=== PATIENT | female | born 1945 | race Caucasian/White ===

== ENCOUNTER → 2023-09-19 16:13 | Outpatient (REF) | payer OTHER, SELFPAY | LOC: RAD 16:13 | PROVIDERS: ATTENDING PHYSICIAN Family Medicine | DX: J44.9 Chronic obstructive pulmonary disease, unspecified (principal) | CPT/HCPCS: 71046 ==

== ENCOUNTER 2023-09-21 08:46 | Inpatient (IN) | payer OTHER, SELFPAY ==
[2023-09-19 17:02] VITALS: BP 169/100
[2023-09-19 17:25] LABS: % Basophils 0.5 % (0-2); % Eosinophils 1.2 % (0-6); % Immature Granulocytes 0.5 % (0-0.5); % Lymphocytes 15.9 % (20.5-51.1); % Monocytes 6.7 % (1.7-9.3); % Neutrophils 75.2 % (42.2-75.2); Absolute Basophils 0.1 10^3/uL (0-0.2); Absolute Eosinophils 0.1 10^3/uL (0-0.7); Absolute Immature Granulocytes 0.1 10^3/uL (0-0.05); Absolute Lymphocytes 1.7 10^3/uL (1.2-3.4); Absolute Monocytes 0.7 10^3/uL (0.1-0.6); Absolute Neutrophils 7.9 10^3/uL (1.4-6.5); Hematocrit 43.6 % (37.0-47.0); Hemoglobin 15.1 g/dL (12.0-16.0); Mean Corp Hgb Conc. 34.6 g/dL (33.0-37.0); Mean Corpuscular Hgb 29.8 pg (27.0-31.0); Mean Corpuscular Volume 86.2 fL (81.0-99.0); Mean Platelet Volume 11.7 fL (7.4-10.4); Nucleated Red Blood Cells % 0 %; Platelet Count 192 10^3/uL (130-400); Red Blood Cell Count 5.06 10^6/uL (4.20-5.40); White Blood Cell Count 10.5 10^3/uL (4.8-10.8)
[2023-09-19 17:38] LABS: ALT (SGPT) 24 U/L (0-35); AST (SGOT) 27 U/L (14-36); Albumin 4.4 g/dl (3.5-5.0); Alkaline Phosphatase 82 U/L (38-126); Blood Urea Nitrogen 13 mg/dl (7-17); Calcium 9.4 mg/dl (8.4-10.2); Carbon Dioxide 30 mmol/L (22-30); Chloride 105 mmol/L (98-107); Glucose 122 mg/dl (70-99); Potassium 4.1 mmol/L (3.5-5.1); Sodium 139 mmol/L (135-145); Total Bilirubin 1.9 mg/dl (0.2-1.3); eGFR > 60.00
[2023-09-19 18:03] LABS: Troponin I 0.035 ng/ml
[2023-09-19 18:13] LABS: NT-proBNP 3050 pg/ml
[2023-09-19 19:30] VITALS: BP 111/70
--- NOTE | 2023-09-19 19:45 | ED.GENMED ---
History of Present Illness
General
Chief Complaint: Breathing Problem
Time Seen by Provider: 09/19/23 19:34
Travel History
Have you had any contact with someone who has COVID-19?: No
Do you have any symptoms of coronavirus? Fever > 100 degrees, chills, cough, shortness of breath, sore throat, loss of taste or smell, muscle aches, or headache?: No
History of Present Illness
History of Present Illness:
78-year-old female with history of COPD, hypertension and hyperlipidemia presents to the emergency department for evaluation of shortness of breath that is worsened throughout the day. Patient noted that she has been 'wheezing' for the past several
weeks, today her shortness of breath appear to be worse. She denies any dyspnea on exertion or orthopnea. Denies any leg swelling or weight gain. Had an outpatient chest x-ray showing cardiomegaly and vascular congestion and thus was sent to the
emergency department for further workup. No history of heart failure, last echocardiogram was in 2019 showing a preserved ejection fraction
Past History
Past History
ED Past Medical History: Cancer (Breast cancer), GERD, HTN, Hypercholesterolemia, Psychiatric (Depression), Other (Diverticulitis, status post colon resection) and Other (Hepatic hemangioma, adrenal adenoma/stable)
ED Past Surgical History: Appendectomy, Bowel resection (Sigmoid colon resection secondary to diverticulitis) and Gynecological (Breast lumpectomy with subsequent XRT, ovarian cyst removal)
Social History
Tobacco: Former smoker
Alcohol: Occasional
Personal: Single
Living: alone
Employment: Retired
Family History
Family History: CAD
Review of Systems
Review of Systems
Allergies reviewed?: Yes
All Other Systems: ROS reviewed and negative except as documented in HPI and ROS
Phy Exam
Physical Exam
Physical Exam:
GEN: Well appearing, NAD, WDWN
Eyes: PERRLA, EOMs intact, no scleral icterus
HENT: NCAT, oral mucosa moist
Lungs: Grossly diminished breath sounds, no wheezes or rales
Cardiac: RRR, no M/R/G, no peripheral edema. Radial pulses 2+ bilat
Abdomen: S, NT, ND, NABS, no masses or hepatosplenomegaly
Neuro: AO x 3
MSK: No gross deformity or ecchymosis. No edema. No digital clubbing
Skin: No rashes, petechiae. Normal color, no pallor or jaundice.
Psych: Calm, cooperative, proper hygiene
Scores
Heart Failure Risk
Heart Failure Risk Score: Not Applicable
Course
Orders/Labs/Results
Orders:
Orders
09/19/23 17:05
Electrocardiogram (*1) Urgent
Reason for Study: Shortness of Breath
EKG- Treatment ONCE
09/19/23 17:16
Complete Blood Count/With Diff Urgent
Comprehensive Metabolic Panel Urgent
NT-proBNP Urgent
Troponin I Urgent
09/19/23 19:47
Furosemide [Lasix] 20 mg IV NOW STA
09/19/23 20:12
Admit/Transfer Patient As Directed
Co-Sign Provider:
Level of Care: Observation services
Assign to:: Telemetry
Physician / Group: lindsey
Diagnosis: chf exacerbation
Reason for Telemetry: Pulmonary Edema
Date to Stop Telemetry: 09/22/23
Time to Stop Telemetry: 11:00
Code Status As Directed
Resuscitation Status: Do not resuscitate
Reached after discussion with pt or family/Healthcare POA: Yes
DNR Bracelet Application ONCE
09/19/23 20:13
Furosemide [Lasix] 20 mg IV NOW STA
09/22/23 11:00
DC Protocol for Telemetry ONCE
Abnormal Lab Results
09/19/23
17:16
MPV 11.7 H fL
(7.4-10.4)
Abs Immat Gran (auto) 0.1 H 10^3/uL
(0-0.05)
Absolute Neuts (auto) 7.9 H 10^3/uL
(1.4-6.5)
Absolute Monos (auto) 0.7 H 10^3/uL
(0.1-0.6)
Lymphocytes % 15.9 L %
(20.5-51.1)
Creatinine 0.5 L mg/dL
(0.6-1.0)
Glucose 122 H mg/dl
(70-99)
Total Bilirubin 1.9 H mg/dl
(0.2-1.3)
Troponin I 0.035 H* ng/ml
09/19/23 17:16
09/19/23 17:16
Vital Signs
Initial and Last Documented VS:
Initial Vital Signs
Temp Resp BP Pulse Ox
98.8 F 20 169/100 93
09/19/23 17:02 09/19/23 17:02 09/19/23 17:02 09/19/23 17:02
Last Documented Vital Signs
Temp Pulse Resp BP Pulse Ox
98.8 F 92 20 154/81 94
09/19/23 17:02 09/19/23 21:35 09/19/23 17:02 09/19/23 21:35 09/19/23 19:22
MDM/Problems Addressed
MDM/Problems Addressed:
78-year-old female presenting with acute shortness of breath. X-ray obtained earlier in the day is suggestive of acute CHF, elevated troponin and BNP further support this diagnosis. She has no wheezing to suggest acute COPD exacerbation. No fever
or leukocytosis concerning for infectious etiology. Given that history of CHF and is na�ve to diuresis we will admit her to the hospitalist service
*Critical Care Note
Total Time (30-74mins, 75-104mins- exclusive of procedures): Not Applicable
ED Attending Note
-
Portions of this chart may have been created with voice recognition software.� Occasional wrong word or��sound alike� substitutions may have occurred due to the inherent limitations of voice recognition software.
Discharge Plan
Departure
Patient Disposition: Admit
Date of Disposition: 09/19/23
Time of Disposition: 19:55
Presentation/result/management discussed w/ accepting MD/DO: Hospitalist
Discharge Problem:
Congestive heart failure
Interventions
Interventions:
*Risk Screen - Suicide Last Done: 09/19/23 19:22
*General Assessment Last Done: 09/19/23 19:22
*Neglect/Abuse Screening Last Done: 09/19/23 19:22
ED- Fall Risk Assessment Last Done: 09/19/23 19:22
*ED COVID-19 Vaccine History Last Done: 09/19/23 17:02
ED- Cardiac Assessment Last Done: 09/19/23 19:22
ED- Pulmonary Assessment Last Done: 09/19/23 19:22
[2023-09-19 20:01] VITALS: BP 154/81
[2023-09-19] MEDS: LASIX 20 MG IV ×2 (20:01→21:35)
--- NOTE | 2023-09-19 20:15 | HPS.HSE ---
Family Physician
-
Family Physician: Paula Currie
Chief Complaint
-
shortness of breath
History of Present Illness
78-year-old female with past medical history of possible COPD, hypertension, osteoarthritis, hypercholesterolemia, anxiety, breast cancer, diverticulosis, presenting with shortness of breath for the past few days associated with wheezing and some
cough in the morning time which usually resolves by the afternoon. Denies fevers or chills. Denies any chest pain. She has gained 2-3 pounds recently. Denies any lower extremity edema or swelling. She had outpatient chest x-ray showing
cardiomegaly and vascular congestion and was sent to the emergency room.
She is a former heavy smoker. Denies alcohol use.
Medical History
Past Medical History
Past Medical History: Reports Other (possible COPD, hypertension, osteoarthritis, hypercholesterolemia, anxiety, breast cancer, diverticulosis)
Past Surgical History: Reports Other (Appendectomy, ovarian cyst removal, colon resection, breast lumpectomy,)
Social History
Tobacco: Former Smoker
Alcohol: None
Drug: None
Family History
Family History: Not pertinent
Allergies / Home Medications
Allergies reflects when Allergies were last updated in [facility].
Home Medications with original date entered in [facility]
Allergy/Medication List:
Allergies
Allergy/AdvReac Type Severity Reaction Status Date / Time
celecoxib [From Celebrex] Allergy Diarrhea,na Verified 09/19/23 17:04
usea
tramadol Allergy 'doesn't Verified 09/19/23 17:04
work'
Home Medications
atenolol 25 mg tablet 25 mg PO DAILY Blood pressure 08/21/22
rosuvastatin 40 mg tablet 40 mg PO QPM High cholesterol 08/21/22
therapeutic multivitamin 1 tab PO QPM Supplement 08/21/22
losartan 100 mg tablet 100 mg PO DAILY #30 tabs 08/23/22
acetaminophen 650 mg tablet,extended release 650 mg PO HS 09/19/23
amlodipine 5 mg tablet 5 mg PO DAILY 09/19/23
Review of Systems
-
History Source: Patient
A 12 point ROS was completed and negative except as noted: Yes
Constitutional: Reports No Symptoms
EENT: Reports No Symptoms
Respiratory: Reports See HPI
Cardiac: Reports See HPI
Abdomen/GI: Reports No Symptoms
: Reports No Symptoms
Musculoskeletal: Reports No Symptoms
Skin: Reports No Symptoms
Neurological: Reports No Symptoms
Endocrine: Reports No Symptoms
Hematologic/Lymphatic: Reports No Symptoms
Psych: Reports No Symptoms
Physical Exam
Vital Signs
Vital Signs
Temp Pulse Resp BP Pulse Ox
98.8 F 79 20 154/81 94
09/19/23 17:02 09/19/23 20:01 09/19/23 17:02 09/19/23 20:01 09/19/23 19:22
Physical Exam
General: Well Developed, Well Nourished and No Apparent Distress
HEENT: NormoCephalic, Moist mucous membranes and Atraumatic
Respiratory: Clear
Cardiac: S1/S2 and Regular Rhythm; No Murmur or Rub
GI: Soft, Non Tender, Non Distended and Normal Bowel Sounds; No Organomegaly
Rectal: Deferred by Provider
Musculoskeletal: No Clubbing, No Cyanosis and No Edema
Skin: No Rash
Neuro: Nonfocal/grossly intact
Laboratory Results
-
09/19/23 17:16
09/19/23 17:16
Laboratory Results
Total Bilirubin 1.9 mg/dl (0.2-1.3) H 09/19/23 17:16
AST 27 U/L (14-36) 09/19/23 17:16
ALT 24 U/L (0-35) 09/19/23 17:16
Alkaline Phosphatase 82 U/L (38-126) 09/19/23 17:16
Troponin I 0.035 ng/ml H* 09/19/23 17:16
Data Reviewed
-
Lab Data: Labs Reviewed by me
Old Records: Reviewed
Impression/Plan
-
IMPRESSION:
PLAN:
# Acute CHF exacerbation
-EKG shows normal sinus rhythm
-Cardiac BNP 3000
-Outpatient x-ray showing increased interstitial markings/cardiomegaly
-Check I's and O's, daily weights
-40 IV Lasix daily
-Check echocardiogram
-Cardiology consult
Possible COPD, undiagnosed
Essential hypertension
-Continue amlodipine, atenolol, losartan
Osteoarthritis
Hypercholesterolemia
-Continue statin
Anxiety
History of breast cancer
Diverticulitis status post sigmoid resection
DNR/DNI
DVT prophylaxis�heparin
Cardiac diet
[2023-09-19 22:00] VITALS: BP 117/75
[2023-09-19 23:00] VITALS: BP 100/64
[2023-09-20] VITALS (19 sets, daily range): BP systolic 76–164; BP diastolic 39–97; PULSE 66; O2SAT 92; BMI 24.7
[2023-09-20] MEDS: TYLENOL 650 MG PO ×2 (02:07→21:34)
[2023-09-20 02:31] LABS: Troponin I 0.045 ng/ml
--- NOTE | 2023-09-20 06:54 | W.PN.HOSP.TC ---
Today's Communication/Plan
-
cont lasix diuresis
cardio eval
PT/OT eval
ECHO
wean O2 supplementation as tolerated
Assessment / Plan
Assessment / Plan
Physical Exam
General: Well Developed, Well Nourished and No Apparent Distress
HEENT: NormoCephalic, Moist mucous membranes and Atraumatic
Respiratory: Clear
Cardiac: S1/S2 and sinus lidya; No Murmur or Rub
GI: Soft, Non Tender, Non Distended and Normal Bowel Sounds; No Organomegaly
Musculoskeletal: No Clubbing, No Cyanosis and No Edema
Skin: No Rash
Neuro: Nonfocal/grossly intact
78F COPD HTN OA HLD Anxiety hx Breast Ca Diverticulosis here for Heart Failure Exacerbation shortness of breath BNP 3000 outpt imaging concerning for cardiomegaly pulm edema.
# Acute CHF exacerbation
-EKG shows normal sinus rhythm
-Cardiac BNP 3000
-Outpatient x-ray showing increased interstitial markings/cardiomegaly
-Monitor I's and O's, daily weights
-40 IV Lasix daily
-Check echocardiogram
-Cardiology consult
#Hypoxic Respiratory Failure 2/2 HF as above
-Improved on 2L nasal cannula and following lasix as above
-wean off oxygen supplementation as tolerated, not on oxygen at home
Troponin elevation likely non-ischemic related
-Chest pain free
-trend Troponin to peak
Possible COPD, undiagnosed
-outpt follow up
Essential hypertension
-Continue amlodipine, atenolol, losartan
Osteoarthritis
Hypercholesterolemia
-Continue statin
Anxiety
History of breast cancer
Diverticulitis status post sigmoid resection
DNR
DVT prophylaxis�heparin
Cardiac diet
I spent a total of 55 minutes with the patient or on the floor. More than 50% of this time involved counseling and coordination of care.
Anticipated Discharge: 24 - 48 hours
Subjective/Interval History
-
Date of Service: September 20, 2023
Reports improvement in shortness of breath since start of Lasix. Denies chest pain
Objective Data
-
Labs:
Laboratory Results
09/20/23
06:00
WBC Pending
Hgb Pending
Hct Pending
Plt Count Pending
Sodium Pending
Potassium Pending
Chloride Pending
Carbon Dioxide Pending
BUN Pending
Creatinine Pending
Glucose Pending
Calcium Pending
Total Bilirubin Pending
AST Pending
ALT Pending
Alkaline Phosphatase Pending
Vital Signs:
Vital Signs
Temp Pulse Resp BP Pulse Ox
98.8 F 92 20 154/81 94
09/19/23 17:02 09/19/23 21:35 09/19/23 17:02 09/19/23 21:35 09/20/23 00:00
I&O
09/18/23 09/19/23 09/20/23
06:59 06:59 06:59
Output Total 1050 / 1050
Balance -1050 / -1050
[2023-09-20 07:37] LABS: % Basophils 0.4 % (0-2); % Eosinophils 1.8 % (0-6); % Immature Granulocytes 0.4 % (0-0.5); % Lymphocytes 16.3 % (20.5-51.1); % Monocytes 8.4 % (1.7-9.3); % Neutrophils 72.7 % (42.2-75.2); Absolute Eosinophils 0.2 10^3/uL (0-0.7); Absolute Lymphocytes 1.5 10^3/uL (1.2-3.4); Absolute Monocytes 0.8 10^3/uL (0.1-0.6); Absolute Neutrophils 6.5 10^3/uL (1.4-6.5); Hematocrit 39.6 % (37.0-47.0); Hemoglobin 13.4 g/dL (12.0-16.0); Mean Corp Hgb Conc. 33.8 g/dL (33.0-37.0); Mean Corpuscular Hgb 29.6 pg (27.0-31.0); Mean Corpuscular Volume 87.4 fL (81.0-99.0); Nucleated Red Blood Cells % 0 %; Platelet Count 167 10^3/uL (130-400); Red Blood Cell Count 4.53 10^6/uL (4.20-5.40); Red Cell Dist. Width 12.7 % (11.5-14.5); White Blood Cell Count 8.9 10^3/uL (4.8-10.8)
[2023-09-20 07:51] LABS: ALT (SGPT) 19 U/L (0-35); AST (SGOT) 22 U/L (14-36); Albumin 3.6 g/dl (3.5-5.0); Alkaline Phosphatase 75 U/L (38-126); Blood Urea Nitrogen 12 mg/dl (7-17); Carbon Dioxide 31 mmol/L (22-30); Chloride 102 mmol/L (98-107); Glucose 105 mg/dl (70-99); Potassium 3.5 mmol/L (3.5-5.1); Sodium 137 mmol/L (135-145); Total Bilirubin 2.8 mg/dl (0.2-1.3); Total Protein 5.8 g/dl (6.3-8.2); eGFR > 60.00
[2023-09-20 07:56] LABS: Troponin I 0.042 ng/ml
[2023-09-20] MEDS: LASIX 40 MG IV (08:21)
[2023-09-20] MEDS: TENORMIN 25 MG PO (08:21)
[2023-09-20] MEDS: COZAAR 100 MG PO (08:22)
[2023-09-20] MEDS: NORVASC 5 MG PO (08:23)
[2023-09-20] MEDS: HEPARIN 5000 UNITS SC ×2 (08:23→20:06)
--- NOTE | 2023-09-20 12:03 | CM ---
CM reviewed medical records. [facility] letter given.
Patient lives independently. Patient has had a history of [facility], but not currently on service. Patient does not have a history of SNF. Patient is active with her PCP. patient uses [facility] for medication services.
CM offered [facility]. Patient is agreeable. CM updated [facility] police liaison officer with new referral.
--- NOTE | 2023-09-20 13:16 | CON.CAR ---
Addendum entered and electronically signed by Jason Schwarz DO 09/20/23 16:13:
I saw and examined the patient.
The Social Studies Department Chair's note was reviewed and I agree with the note.
Comment:
Plan:
Continue IV lasix diuresis. She was not taking lasix prior to admit. Elevated pBNP and chest xray with findings of HF.
Check echo
Cont med tx of nonMI troponin.
EKG without ischemic changes
HPI: [facility] due to acute HF on outpatient CXR and cardiology is now consulted. Patient says that she felt a wheeze upon waking in the morning for the last week and this was new and different for her. No orthopnea
though. 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 No chest pain or palpitations. She was SOB with walking so she saw her PCP for a walk-in visit yesterday and was sen to for an urgent CXR that showed acute HF
changes and she was then [facility]. Patient reports symptomatic improvement overnight with less SOB. Patient feels that in hindsight this was similar to acute HF she experienced in 2015 after CARMEN although at that time it
was attributed to IVFs around the time of surgery. Patient denies increased salt or fluid intake and only reports that she is eating much more ice cream than usual for the last month or so.
Original Note:
Consultation
Consultation Request
Date/Time Consultation Requested: 09/19/23 at 2235
Date/Time Consultation Performed: 09/20/23 at 1230
Requesting Provider: Dr. Bernstein
Performing Provider: Dr. Schwarz
Reason for Consultation: Acute HFpEF
Medical History
-
History of Present Illness:
Patient was [facility] due to acute HF on outpatient CXR and cardiology is now consulted. Patient says that she felt a wheeze upon waking in the morning for the last week and this was new and different for her. No orthopnea though.
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 No chest pain or palpitations. She was SOB with walking so she saw her PCP for a walk-in visit yesterday and was sen to for an urgent CXR that showed acute HF changes and
she was then sent [facility]. Patient reports symptomatic improvement overnight with less SOB. Patient feels that in hindsight this was similar to acute HF she experienced in 2014 after CARMEN although at that time it was attributed
to IVFs around the time of surgery. Patient denies increased salt or fluid intake and only reports that she is eating much more ice cream than usual for the last month or so.
PMH:
Preserved EF 65-70% by echo 09/20/23
h/o post-op acute HF following CARMEN in 2014
History of R breast cancer 1999
Hypertension
Hypercholesterolemia
History of diverticulitis
Atherosclerosis on chest x-ray
h/o orthostasis
h/o recurrent hyponatremia in the setting of HCTZ use
Past Medical History
Past Medical History: Other (in HPI)
Past Surgical History: Appendectomy, Gynecological (right ovarian cyst removed 2010 at time of appendectomy) and Orthopedic
Social History
Tobacco: Former Smoker
Alcohol: Occasional (monthly or less)
Drug: None
Personal:
Living: Alone
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)
Family History
Family History: CAD
Allergies / Home Medications
Allergy/AdvReac Type Severity Reaction Status Date / Time
celecoxib [From Celebrex] Allergy Diarrhea,na Verified 09/19/23 17:04
usea
tramadol Allergy 'doesn't Verified 09/19/23 17:04
work'
�Medication �Instructions �Recorded �Confirmed �Type
atenolol 25 mg tablet 25 mg PO DAILY Blood pressure 08/21/22 09/19/23 History
rosuvastatin 40 mg tablet 40 mg PO QPM High cholesterol 08/21/22 09/19/23 History
therapeutic multivitamin 1 tab PO QPM Supplement 08/21/22 09/19/23 History
losartan 100 mg tablet 100 mg PO DAILY #30 tabs 08/23/22 09/19/23 Rx
acetaminophen 650 mg 650 mg PO HS 09/19/23 09/19/23 History
tablet,extended release
amlodipine 5 mg tablet 5 mg PO DAILY 09/19/23 09/19/23 History
Review of Systems
-
History Source: Patient
All other systems: Negative unless noted
Physical Exam
Vital Signs
Temp Pulse Resp BP Pulse Ox
98.5 F 58 20 130/64 97
09/20/23 11:49 09/20/23 12:00 09/20/23 12:00 09/20/23 12:00 09/20/23 08:00
GEN: NAD, AAOx3
HEENT: EOMI, MMM
LUNGS: CTA B/L, no wheezes/rales
CV: Reg, S1/S2, no murmur
ABD: soft, BS+, NT, ND
EXT: No clubbing, cyanosis, lesions or edema B/L
NEURO: Gross non-focal
SKIN: Warm, dry and pink. No rash
Lab Results
09/20/23 07:05
09/20/23 07:05
Troponin I 0.042 ng/ml H* 09/20/23 07:05
Iwj-[id number]-Lshsxgtgcst Pept 3050 pg/ml 09/19/23 17:16
Impression / Plan
-
PCP: Dr. Klein
Cardiology: Dr. Kamara
Impression:
Acute HFpEF
Preserved EF 65-70% by echo 09/20/23
h/o post-op acute HF following CARMEN in 2014
History of R breast cancer 1999
Hypertension
Hypercholesterolemia
History of diverticulitis
h/o orthostasis
h/o recurrent hyponatremia in the setting of HCTZ use
Echo 03/2015: Normal LV, EF 55-60%, normal RV, normal atria, normal mitral and aortic valve mild tricuspid regurgitation, pulmonary artery pressure 45-50 mmHg
Echo 09/20/23: EF 65-70%, mild MR, mild to mod TR with PAP 55-60 mmHg
Plan:
-Patient was [facility] due to acute HF on outpatient CXR and cardiology is now consulted. Patient says that she felt a wheeze upon waking in the morning for the last week and this was new and different for her. No orthopnea though.
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 No chest pain or palpitations. She was SOB with walking so she saw her PCP for a walk-in visit yesterday and was sen to for an urgent CXR that showed acute HF changes and
she was then [facility]. Patient reports symptomatic improvement overnight with less SOB. Patient feels that in hindsight this was similar to acute HF she experienced in 2014 after CARMEN although at that time it was attributed
to IVFs around the time of surgery. Patient denies increased salt or fluid intake and only reports that she is eating much more ice cream than usual for the last month or so.
-pro-BNP 3050 and acute HF changes on CXR. Patient symptomatically improved with Lasix 20 mg IV x1 overnight and then starting today Lasix 40 mg IV daily. Patient was not taking a loop diuretic prior to admission
-Follow labs, but Cre stable for now
-Patient with a h/o recurrent hyponatremia while using HCTZ and this should not be restarted. Patient admitted for this in 2014 and again in 08/2022 when HCTZ was restarted.
-Initial Troponin was 0.035 and then peaked at 0.045. Will manage as a nonischemic myocardial injury Troponin elevation due to acute HF. EF stable on echo without WMA
-ECG reviewed by me with SR and PACs. No ischemic changes
-Cont usual dose of atenolol 25 mg daily and losartan 100 mg daily
-Cont outpatient dose of amlodipine 5 mg daily, but if hypotension with diuresis becomes an issue then this is the first med to be stopped
[2023-09-20 15:52] LABS: Troponin I 0.025 ng/ml
--- NOTE | 2023-09-20 17:10 | PTCARENOTE ---
Rec'd Pt from ED to Room 434-2. Pt oriented to room with call lebron in place.
[2023-09-20] MEDS: THERAGRAN 1 TABLET PO (17:18)
[2023-09-20] MEDS: CRESTOR 40 MG PO (17:18)
[2023-09-21 03:13] VITALS: BP 102/50
[2023-09-21 05:11] VITALS: BMI 24.6
[2023-09-21 07:30] VITALS: BP 111/76
[2023-09-21 08:15] LABS: Hematocrit 42.4 % (37.0-47.0); Hemoglobin 14.4 g/dL (12.0-16.0); Mean Corpuscular Hgb 29.5 pg (27.0-31.0); Mean Corpuscular Volume 86.9 fL (81.0-99.0); Platelet Count 190 10^3/uL (130-400); Red Blood Cell Count 4.88 10^6/uL (4.20-5.40); Red Cell Dist. Width 12.7 % (11.5-14.5); White Blood Cell Count 7.3 10^3/uL (4.8-10.8)
--- NOTE | 2023-09-21 08:35 | W.PN.HOSP.TC ---
Today's Communication/Plan
-
discharge
Assessment / Plan
Assessment / Plan
Physical Exam
General: Well Developed, Well Nourished and No Apparent Distress
HEENT: NormoCephalic, Moist mucous membranes and Atraumatic
Respiratory: Clear
Cardiac: S1/S2 and sinus lidya; No Murmur or Rub
GI: Soft, Non Tender, Non Distended and Normal Bowel Sounds; No Organomegaly
Musculoskeletal: No Clubbing, No Cyanosis and No Edema
Skin: No Rash
Neuro: Nonfocal/grossly intact
78F COPD HTN OA HLD Anxiety hx Breast Ca Diverticulosis here for Heart Failure Exacerbation shortness of breath BNP 3000 outpt imaging concerning for cardiomegaly pulm edema.
# Acute CHF exacerbation
-EKG shows normal sinus rhythm
-Cardiac BNP 3000
-Outpatient x-ray showing increased interstitial markings/cardiomegaly
-Monitor I's and O's, daily weights
-ECHO appreciated preserved EF 65-70% mild to mod tricuspid regurgitation
-Cardiology consult appreciated IV lasix 40 mg daily transitioned to 20 mg daily PO
#Hypoxic Respiratory Failure 2/2 HF as above
-Improved on 2L nasal cannula and following lasix as above
-wean off oxygen supplementation, respiratory status stable on room air
Troponin elevation likely non-ischemic related
-Chest pain free
-Troponin trended to peak 0.045 since trended down
Possible COPD, undiagnosed
-correction, discussed with patient who reports that she has been diagnosed with COPD before, also reports former smoker
-Respiratory status stable on room air, no inhalers or bronchodilator therapy necessary.
-continue follow up with primary
Essential hypertension
-Continue atenolol, losartan
-Amlodipine discontinued as per cardio recommendations due to relatively soft pressures and new medication Lasix as above
Osteoarthritis
Hypercholesterolemia
-Continue statin
Mild Hypokalemia
repleted
Anxiety
History of breast cancer
Diverticulitis status post sigmoid resection
DNR
DVT prophylaxis�heparin
Cardiac diet
PT/OT appreciated no needs
Medically stable for discharge home with outpatient follow up recommendations.
discussed with patient, patient's daughter Piper, son-in-law Augustine, and Cardiology
Total Time Preparing Discharge __50 minutes including examination of the patient, summary of the hospital stay, instructions for continuing care to all relevant caregivers; and preparation of discharge records, prescriptions, and referral
forms if necessary.
Anticipated Discharge: Today
Subjective/Interval History
-
Date of Service: September 21, 2023
Seen and examined at bedside in no acute distress resting comfortably in bed. Reports overall feeling well. Weaned off oxygen supplementation, breathing well on room air. Ambulating without issues. Denies new acute issues at this time. Eager to
go home. Daughter Piper and son-in-law Augustine present during evaluation.
Objective Data
-
Labs:
Laboratory Results
09/21/23
07:48
WBC 7.3
Hgb 14.4
Hct 42.4
Plt Count 190
Sodium Pending
Potassium Pending
Chloride Pending
Carbon Dioxide Pending
BUN Pending
Creatinine Pending
Glucose Pending
Calcium Pending
Vital Signs:
Vital Signs
Temp Pulse Resp BP Pulse Ox
97.6 F 67 20 111/76 92
09/21/23 07:30 09/21/23 07:30 09/21/23 07:30 09/21/23 07:30 09/21/23 07:30
I&O
09/20/23 09/21/23 09/22/23
06:59 06:59 06:59
Intake Total 240 / 240
Output Total 1050 / 1050
Balance -1050 / -1050 240 / 240
[2023-09-21 08:48] LABS: Blood Urea Nitrogen 16 mg/dl (7-17); Calcium 9.4 mg/dl (8.4-10.2); Carbon Dioxide 31 mmol/L (22-30); Chloride 96 mmol/L (98-107); Estimated Creatinine Clearance 51 ml/min; Glucose 118 mg/dl (70-99); Phosphorus 4.1 mg/dl (2.5-4.5); Potassium 3.4 mmol/L (3.5-5.1); Sodium 136 mmol/L (135-145); eGFR > 60.00
[2023-09-21] MEDS: HEPARIN 5000 UNITS SC (09:34)
[2023-09-21] MEDS: KCL 40 MEQ PO (09:34)
[2023-09-21] MEDS: NORVASC 5 MG PO (09:34)
[2023-09-21] MEDS: COZAAR 100 MG PO (09:34)
[2023-09-21] MEDS: TENORMIN 25 MG PO (09:34)
[2023-09-21] MEDS: LASIX 40 MG IV (09:35)
--- NOTE | 2023-09-21 10:41 | CM ---
Addendum entered by Tomasa Gil 09/21/23 12:37:
Patient is agreeable to [facility].
Plan; Home with [facility].
Original Note:
Patient has switched to inpatient, IMM provided, patient did well with physial therapy and plan is to home when stable.
Plan; Home when stable, no needs.
--- NOTE | 2023-09-21 11:32 | W.PN.CARDCBS ---
Addendum entered and electronically signed by Alex Alvarado MD 09/21/23 12:12:
I saw and examined the patient.
The Cytogenetic Technologist's note was reviewed and I agree with the note.
Comment: Briefly, 78-year-old woman presenting with past medical history of heart failure with preserved ejection fraction presenting in decompensated heart failure
Her volume status is significantly improved with IV Lasix
Was not on oral Lasix prior to admission, with discharge on 20 mg daily
Provided CHF education to patient and family at bedside
Blood pressure running on the lower end, would stop Norvasc for now and reevaluate blood pressure as outpatient
Stable for discharge from cardiology perspective, outpatient follow-up has been arranged
Original Note:
Today's Communication / Plan
-
po lasix 20mg daily
stop OP norvasc
BMP in 1 week
OP cardiac follow up arranged
CHF education provided
ok for DC
Impression / Plan
-
PCP: Dr. Klein
Cardiology: Dr. Kamara
Impression:
Acute HFpEF
Preserved EF 65-70% by echo 09/20/23
h/o post-op acute HF following CARMEN in 2014
History of R breast cancer 1999
Hypertension
Hypercholesterolemia
History of diverticulitis
h/o orthostasis
h/o recurrent hyponatremia in the setting of HCTZ use
Echo 03/2015: Normal LV, EF 55-60%, normal RV, normal atria, normal mitral and aortic valve mild tricuspid regurgitation, pulmonary artery pressure 45-50 mmHg
Echo 09/20/23: EF 65-70%, mild MR, mild to mod TR with PAP 55-60 mmHg
Plan:
-she is feeling better today. off supp O2
-will have patient walk in hallway and assess breathing
-discussed fluid and salt restrictions as well as daily weights at home with patient, and family at bedside
-reviewed results of echo with patient and family today
-stop OP HCTZ. will plan to DC on po lasix 20mg daily
-will need BMP in 1 week. she has history of hyponatremia on HCTZ in past
-continue OP atenolol and losartan. stop OP norvasc
-remains in SR with PACs on review of tele overnight
-Initial Troponin was 0.035 and then peaked at 0.045. no CP. suspected nonischemic myocardial injury Troponin elevation due to acute HF. EF stable by echo 09/19
-OP cardiac follow up arranged
-ok for DC from cardiac standpoint. d/w hospitalist
PREADMIT DATA:
-Patient was sent from radiology to [facility] due to acute HF on outpatient CXR and cardiology is now consulted. Patient says that she felt a wheeze upon waking in the morning for the last week and this was new and different for her. No orthopnea though.
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 No chest pain or palpitations. She was SOB with walking so she saw her PCP for a walk-in visit yesterday and was sen to for an urgent CXR that showed acute HF changes and
she was then sent to [facility] for further evaluation. Patient reports symptomatic improvement overnight with less SOB. Patient feels that in hindsight this was similar to acute HF she experienced in 2014 after CARMEN although at that time it was attributed
to IVFs around the time of surgery. Patient denies increased salt or fluid intake and only reports that she is eating much more ice cream than usual for the last month or so.
Progress Note - Health And Wellness Coordinator
Subjective
Date of Service: September 21, 2023
reports breathing is better overnight. reports good urine output
Objective
Labs:
09/21/23 07:48
09/21/23 07:48
Labs
Hgb 14.4 g/dL (12.0-16.0) 09/21/23 07:48
Hct 42.4 % (37.0-47.0) 09/21/23 07:48
Plt Count 190 10^3/uL (130-400) 09/21/23 07:48
Sodium 136 mmol/L (135-145) 09/21/23 07:48
Potassium 3.4 mmol/L (3.5-5.1) L 09/21/23 07:48
BUN 16 mg/dl (7-17) 09/21/23 07:48
Creatinine 0.7 mg/dL (0.6-1.0) 09/21/23 07:48
Glucose 118 mg/dl (70-99) H 09/21/23 07:48
Troponins
09/19/23 09/20/23 09/20/23
17:16 01:50 07:05
Troponin I 0.035 H* 0.045 H* 0.042 H*
09/20/23 09/20/23
14:37 20:40
Troponin I 0.025 D Cancelled
Vital Signs and I&O:
Vital Signs
Temp Pulse Resp BP Pulse Ox
97.6 F 67 20 111/76 92
09/21/23 07:30 09/21/23 07:30 09/21/23 07:30 09/21/23 07:30 09/21/23 07:30
Vital Signs
Temp Pulse Resp BP Pulse Ox
97.6 F 67 20 111/76 92
09/21/23 07:30 09/21/23 07:30 09/21/23 07:30 09/21/23 07:30 09/21/23 07:30
Intake & Output
09/19/23 09/20/23 09/21/23 09/22/23
07:59 07:59 07:59 07:59
Intake Total 240 / 240
Output Total 1050 / 1050
Balance -1050 / -1050 240 / 240
Physical Exam
Physical Exam
GEN: No distress, awake, alert, oriented x3
HEENT: supple, anicteric, mmm, eomi
LUNGS: CTA B/L, no wheezes/rales
CV: Reg, S1/S2, no murmur
ABD: soft, BS+, NT/ND
EXT: No cyanosis, clubbing, edema
NEURO: Gross non-focal
SKIN: Warm, pink, dry. No rash
[2023-09-21 12:00] VITALS: BP 122/65
--- NOTE | 2023-09-21 14:06 | W.DCSUMMARY ---
Discharge Summary
Discharge Data
Date of Admission: 09/19/23
Date of Discharge: 09/21/23
-
Pending Results: No
Hospital Course
78F COPD former smoker HTN OA HLD Anxiety hx Breast Ca Diverticulosis here for Heart Failure Exacerbation shortness of breath BNP 3000 outpt imaging concerning for cardiomegaly pulm edema. Acute CHF exacerbation, EKG showed normal sinus rhythm,
Cardiac BNP 3000,Outpatient x-ray showed increased interstitial markings/cardiomegaly. ECHO appreciated preserved EF 65-70% mild to mod tricuspid regurgitation. Cardiology evaluated and IV Lasix 40 mg daily was eventually transitioned to 20 mg
daily PO. Hypoxic Respiratory Failure 2/2 HF, patient improved with diuresis and was wean off oxygen supplementation, respiratory status stable on room air.
Troponin elevation likely non-ischemic related, Chest pain free, Troponin trended to peak 0.045 since trended down. Amlodipine was discontinued as per cardio recommendations due to relatively soft pressures and new medication Lasix. Medically
stable, patient was discharged home with outpatient follow up recommendations.
Discharge Plan
-
Patient Disposition: Home with Home Care
Discharge Diagnosis/Procedures: Acute on Chronic Heart Failure with Preserved Ejection Fraction, Hypertension
Condition: Good
Diet: 2 Gram Sodium
Activity: As tolerated
Driving Restrictions: As prior to admission
Bathing Restrictions: None
Blood Work: BMP in 1 week with results to be forwarded to primary care provider and director of architecture. Script has been provided to facilitate
Other Services: VN
Specialty Instructions: Weigh Daily- Call MD for wt gain/loss 3 lbs overnight/5 lbs in 1 week
Activity Restrictions/Additional Instructions:
Please follow up with primary care provider in 1 week of discharge and keep your appointment with Cardiology.
Lasix has been prescribed for Heart Failure.
Amlodipine has been discontinued to allow for blood pressure room new medication Lasix. Please follow up with primary care provider or cardiology before considering to resume Amlodipine.
Please take medications as prescribed/recommended and follow up with primary care provider cardiology and/or other healthcare provider involved in your care for refills and/or further adjustment to your medication regimen as necessary.
atenolol 25 mg tablet 25 mg PO DAILY Blood pressure
rosuvastatin 40 mg tablet 40 mg PO QPM High cholesterol
therapeutic multivitamin 1 tab PO QPM Nutrition Supplement
losartan 100 mg tablet 100 mg PO DAILY Blood Pressure
acetaminophen 650 mg tablet,extended release 650 mg PO HS pain/arthritis
furosemide 20 mg tablet 20 mg PO DAILY Heart Failure
Instructions: *[facility] Heart Failure Instructions
Referrals:
Nereyda Abraham PA-C [Specified Professional Personl] - 10/05/23 8:40 am (You have a cardiology follow-up appointment at the [facility] office with Dr. Kamara's physician academic assistant, Nereyda. Please call with questions)
Paula Currie MD [Family Provider] - in one week
Prescriptions:
New
furosemide 20 mg tablet
20 mg PO DAILY 30 Days Qty: 30 0RF
Continued
atenolol 25 mg tablet
25 mg PO DAILY
rosuvastatin 40 mg tablet
40 mg PO QPM
therapeutic multivitamin Tablet
1 tab PO QPM
losartan 100 mg Tablet
100 mg PO DAILY Qty: 30 0RF
acetaminophen 650 mg Tablet Extended Release
650 mg PO HS
Discontinued
amlodipine 5 mg tablet
5 mg PO DAILY
Discharge Orders:
Discharge Patient (As Directed); Ordered 09/21/23
Ordered By: Rajani Bernstein
Discharge Date and Time
Discharge Date/Time: 09/21/23 15:55
Print Language: IRISH
== END 2023-09-21 15:55 | disposition home health service (06) | DRG 291 ==
LOC: 4 WEST ACU 08:46
PROVIDERS: Emergency Medicine; ADMITTING PHYSICIAN Hospitalist; ATTENDING PHYSICIAN Internal Medicine; EMERGENCY PHYSICIAN Emergency Medicine; FAMILY PHYSICIAN Family Medicine; OTHER PHYSICIAN Nuclear Medicine Nuclear Cardiology
DX: I11.0 Hypertensive heart disease with heart failure (principal); I50.33 Acute on chronic diastolic (congestive) heart failure; J96.91 Respiratory failure, unspecified with hypoxia; E87.1 Hypo-osmolality and hyponatremia; I5A Non-ischemic myocardial injury (non-traumatic); J44.9 Chronic obstructive pulmonary disease, unspecified; E78.00 Pure hypercholesterolemia, unspecified; E87.6 Hypokalemia; F41.9 Anxiety disorder, unspecified; M19.90 Unspecified osteoarthritis, unspecified site; F32.A Depression, unspecified; K21.9 Gastro-esophageal reflux disease without esophagitis; Z90.49 Acquired absence of other specified parts of digestive tract; Z87.891 Personal history of nicotine dependence; Z66 Do not resuscitate; Z85.3 Personal history of malignant neoplasm of breast; Z87.19 Personal history of other diseases of the digestive system; Z88.5 Allergy status to narcotic agent; Z88.6 Allergy status to analgesic agent
CPT/HCPCS: 80048; 80053; 83735; 83880; 84100; 84484; 85025; 85027; 93005; 93306; 96374; 99285

== ENCOUNTER 2024-02-06 02:11 | Inpatient (IN) | payer OTHER, SELFPAY ==
[2024-02-06] VITALS (71 sets, daily range): BP systolic 71–196; BP diastolic 51–148; PULSE 2–112; BMI 25.4; BMI 25.0
[2024-02-06 00:32] LABS: % Basophils 0.6 % (0-2); % Eosinophils 1.7 % (0-6); % Immature Granulocytes 0.4 % (0-0.5); % Lymphocytes 21.4 % (20.5-51.1); % Monocytes 7.8 % (1.7-9.3); % Neutrophils 68.1 % (42.2-75.2); Absolute Basophils 0.1 10^3/uL (0-0.2); Absolute Eosinophils 0.3 10^3/uL (0-0.7); Absolute Immature Granulocytes 0.1 10^3/uL (0-0.05); Absolute Lymphocytes 3.8 10^3/uL (1.2-3.4); Absolute Monocytes 1.4 10^3/uL (0.1-0.6); Absolute Neutrophils 12.2 10^3/uL (1.4-6.5); Hematocrit 47.3 % (37.0-47.0); Hemoglobin 15.6 g/dL (12.0-16.0); Mean Corpuscular Hgb 28.7 pg (27.0-31.0); Mean Corpuscular Volume 86.9 fL (81.0-99.0); Mean Platelet Volume 12.5 fL (7.4-10.4); Nucleated Red Blood Cells % 0 %; Platelet Count 272 10^3/uL (130-400); Red Blood Cell Count 5.44 10^6/uL (4.20-5.40); Red Cell Dist. Width 13.2 % (11.5-14.5); White Blood Cell Count 17.9 10^3/uL (4.8-10.8)
[2024-02-06 00:48] LABS: ALT (SGPT) 58 U/L (0-35); AST (SGOT) 68 U/L (14-36); Albumin 4.8 g/dl (3.5-5.0); Alkaline Phosphatase 103 U/L (38-126); Blood Urea Nitrogen 12 mg/dl (7-17); Calcium 9.9 mg/dl (8.4-10.2); Carbon Dioxide 25 mmol/L (22-30); Chloride 98 mmol/L (98-107); Estimated Creatinine Clearance 51 ml/min; Glucose 192 mg/dl (70-99); Potassium 4.4 mmol/L (3.5-5.1); Sodium 135 mmol/L (135-145); Total Bilirubin 2.5 mg/dl (0.2-1.3); Total Protein 7.3 g/dl (6.3-8.2); eGFR > 60.00
--- NOTE | 2024-02-06 00:54 | ED.GENMED ---
History of Present Illness
General
Chief Complaint: Breathing Problem
Source: patient
Exam Limitations: none
Time Seen by Provider: 02/06/24 00:39
Nursing documentation reviewed up to this point in time: agreed with
History of Present Illness
History of Present Illness:
Patient with history of COPD and CHF, presents ED secondary to increased work of breathing along with intermittent cough for the past 2 days. Per paramedics, patient was found to be in severe respiratory distress at home with hypoxia, requiring
supplemental oxygen via 100% nonrebreather. Patient was given aspirin as well as nebulizer treatment en route to the hospital, with minimal relief in symptoms. Upon arrival, patient denies chest pain. Denies nausea, vomiting, or diarrhea. Denies
back pain. Denies fever. Denies leg pain or swelling. Denies recent travel or surgery.
Past History
Past History
ED Past Medical History: Cancer (Breast cancer), GERD, HTN, Hypercholesterolemia, Psychiatric (Depression), Other (Diverticulitis, status post colon resection) and Other (Hepatic hemangioma, adrenal adenoma/stable)
ED Past Surgical History: Appendectomy, Bowel resection (Sigmoid colon resection secondary to diverticulitis) and Gynecological (Breast lumpectomy with subsequent XRT, ovarian cyst removal)
Social History
Tobacco: Former smoker
Alcohol: Occasional
Personal: Single
Living: alone
Employment: Retired
Family History
Family History: CAD
Review of Systems
Review of Systems
Allergies reviewed?: Yes
All Other Systems: ROS reviewed and negative except as documented in HPI and ROS
Constitutional: Reports no symptoms; Denies fever
EENT: Reports no symptoms
Respiratory: Reports cough and trouble breathing
ABD/GI: Reports no symptoms
Musculoskeletal: Reports no symptoms
Skin: Reports no symptoms
Neurological: Reports no symptoms
Phy Exam
Physical Exam
Physical Exam:
Physical Exam
General: moderate respiratory distress, not acutely ill. afebrile
Head: nc/at. eomi
Neck: supple. normal range of motion.
Heart: s1/s2 regular rate and rhythm, no murmur. equal radial pulses.
Lungs: moderate respiratory distress. expiratory wheezing bilaterally
Abdomen: normal bowel sounds. not tender.
Neuro: alert and oriented. no focal neurological deficits
Skin: no rash
Psychiatric: well kept. interactive and cooperative
Extremities: LE b/l edema, nonpitting. no calf tenderness.
Scores
Heart Failure Risk
Heart Failure Risk Score: Yes
History of Stroke or TIA: No
History of intubation for respiratory distress: No
Heart rate on ED arrival >/= 110: No
SaO2 <90% on arrival on room air: Yes
HR >/=110 during 3min walk test (or too ill to perform test): No
ECG has acute ischemic changes: No
Urea >/=12mmol/L (BUN 33.6mg/dL): No
Serum CO2>/=35mmol/L: No
Troponin I or T elevated to IN Level (0.4mg/dL): No
NT-proBNP >/=5,000ng/L (5,000pg/ml): Yes
HF Risk Score: 2
Admission Status: MEDIUM RISK 9.2% Consider observation or discharge to home with homecare & f/u visit to PCP/Garbage Truck Dispatcher, or SNF for treatment
Course
Orders/Labs/Results
Orders:
Orders
02/06/24 00:20
Electrocardiogram (*1) Urgent
Reason for Study: Chest Pain
Cardiac Monitoring- Treatment ONCE
EKG- Treatment ONCE
IV Insert/Care/Rem.- Treatment PRN
O2 Therapy [RESP] Urgent
Titrate/Wean O2 to maintain O2 sat greater than (%): 90
Special Instructions: Maintain sats >/=90%
Pulse Ox/spot Check [RESP] Urgent
Quantity: 1
Special Instructions: ON ROOM AIR
02/06/24 00:22
Complete Blood Count/With Diff Urgent
Comprehensive Metabolic Panel Urgent
Direct Bilirubin Urgent
Comment: ADD ON
Glycohemoglobin (HgbA1c) Urgent
LDH Urgent
Comment: ADD ON
Magnesium Urgent
Comment: ADD ON
Pro-BNP [NT-proBNP] Urgent
Troponin I Urgent
02/06/24 00:39
CR Chest Portable - 1 View Urgent
Comment:
Reason For Exam: sob
Reason Study Needs to be Portable: Patient Unstable
02/06/24 00:45
COVID-19 Antigen Urgent
Source: Nasal Swab
02/06/24 00:52
Albuterol Nebs [Ventolin Nebules] 2.5 mg INH R NOW STA
Dexamethasone Sod Phosphate [Decadron] 10 mg IV NOW STA
Furosemide [Lasix] 60 mg IV NOW STA
Ipratropium/Albuterol Sulfate [Duoneb] 3 ml INH R NOW STA
02/06/24 00:53
Add On- LAB Urgent
Tests Added?: magnesium
02/06/24 01:00
Nitroglycerin 100 mg/250 ml [Nitroglycerin Premix] 100 mg in 250 ml IV PER PROTOCOL
Initial dose in mcg/min, then titrate:: 150
Titrate to keep:: SBP < 160 mmHg
Titrate by mcg/min:: 5 mcg/min, may increase by 10 mcg/min if dose > 20 mcg/min
Frequency of titrations (minutes):: every 3-5 minutes
Maximum dose in mcg/min:: 200
Begin to taper infusion when:: Remained at goal for 2hrs
Taper by mcg/min:: 5 mcg/min
Frequency of taper (minutes) if patient maintains goal:: 30
Taper to off?: Yes
If infusion off & no longer maintaining goal:: Contact Provider
02/06/24 01:10
D-Dimer Urgent
02/06/24 01:58
Admit/Transfer Patient As Directed
Co-Sign Provider:
Level of Care: Inpatient admission
Assign to:: IMU- Intermediate Care
Physician / Group: jamil
Diagnosis: acute on chr HFpEF, HTN ememrgency, acute hypoxic RF
Reason for Hospitalization: acute on chr HFpEF, HTN ememrgency, acute hypoxic RF
Expected length of stay greater than two midnights?: Yes
ELOS- Estimated Length of Stay in days: 5
I certify the patient meets the requirements for IP care: Yes
02/06/24 02:00
Code Status As Directed
Resuscitation Status: Full Code
Flush (0.9% Sodium Chloride) [Flush (Nss)] See Dose Instructions IV PER PROTOCOL
02/06/24 02:01
CT Chest Pe Study Urgent
Comment:
Reason For Exam: sob, hypoxia, with elevated d-dimer
02/06/24 02:44
CARDIOLOGY CONSULT Routine
Consulting Provider: Cullen Alfonso
Was physician already notified: No
Reason for consult: acute on chr HFpEF, HTN ememrgency, acute hypoxic RF
Consult Notification Routine
Specialty to Notify: Cardiology
Date consulting provider notified: 02/06/24
Time consulting provider notified: 08:19
Notified:: Provider
HF DIETARY CONSULT Routine
HF EDUCATOR CONSULT Routine
Comment:
Activity As Directed
Activity Level: With Assistance
Intake/ Output As Directed
Frequency: Per unit guidelines
Patient Education As Directed
Type: CHF folder
Comment: give on admission. Document in Interdisciplinary Education record
Sleep Apnea Assessment by RN As Directed
Comment:
Physician Instructions:
Vital Signs As Directed
Frequency: Other
Additional Instructions:: Q12 or per unit guidelines if more frequent.
Weight As Directed
Frequency: Daily
Type of Scale: Standing Scale
Comment: Daily morning weight. If unable to stand, use balanced bed scale.
Weight As Directed
Frequency: Once
Type of Scale: Standing Scale
Comment: Upon Admission. If unable to stand, use balanced bed scale.
Pulse Ox/cont/shift [RESP] Routine
Quantity: 1
Special Instructions: Daily pulse oximetry at rest. If greater than 92% at rest also obtain pulse oximetry
while ambulating as tolerated.
DX Deep Vein Thrombosis Video Routine
02/06/24 05:22
Cardiovascular Evaluation IN AM
Comprehensive Metabolic Panel IN AM
02/06/24 Breakfast
Cholesterol Lowering
At Your Request: Full Participation
Does patient need a safe tray?: No
Cholesterol Lowering: Sodium, 2 Gram
02/06/24 08:00
Atenolol [Tenormin] 25 mg PO DAILY
Furosemide [Lasix] 40 mg IV BID AT 0800,1600
Losartan [Cozaar] 100 mg PO DAILY
02/06/24 18:00
Enoxaparin Sodium [Lovenox] 40 mg SC QPM
Rosuvastatin Calcium [Crestor] 40 mg PO QPM
Abnormal Lab Results
02/06/24 02/06/24
00:22 01:10
WBC 17.9 H 10^3/uL
(4.8-10.8)
RBC 5.44 H 10^6/uL
(4.20-5.40)
Hct 47.3 H %
(37.0-47.0)
MPV 12.5 H fL
(7.4-10.4)
Abs Immat Gran (auto) 0.1 H 10^3/uL
(0-0.05)
Absolute Neuts (auto) 12.2 H 10^3/uL
(1.4-6.5)
Absolute Lymphs (auto) 3.8 H 10^3/uL
(1.2-3.4)
Absolute Monos (auto) 1.4 H 10^3/uL
(0.1-0.6)
D-Dimer 1.20 H ug/mlFEU
(0.00-0.50)
Glucose 192 H mg/dl
(70-99)
Hemoglobin A1c 5.8 H %
(4.0-5.6)
Total Bilirubin 2.5 H mg/dl
(0.2-1.3)
Direct Bilirubin 0.5 H mg/dl
(0.0-0.4)
AST 68 H U/L
(14-36)
ALT 58 H U/L
(0-35)
Lactate Dehydrogenase 331 H U/L
(120-246)
Troponin I 0.035 H* ng/ml
02/06/24 00:22
02/06/24 00:22
Vital Signs
Initial and Last Documented VS:
Initial Vital Signs
Temp Pulse Resp BP Pulse Ox
97.9 F 97 30 190/99 100
02/06/24 00:26 02/06/24 00:26 02/06/24 00:26 02/06/24 00:26 02/06/24 00:26
Last Documented Vital Signs
Temp Pulse Resp BP Pulse Ox
98.7 F 120 20 138/76 95
02/06/24 11:13 02/06/24 20:29 02/06/24 20:00 02/06/24 20:29 02/06/24 21:31
MDM/Problems Addressed
MDM/Problems Addressed:
Patient presenting with hypoxia, in respiratory distress, likely multifactorial, including COPD as well as CHF exacerbation. Patient placed on BiPAP and started on nitroglycerin infusion.
Leukocytosis noted, likely reactive, as there is no evidence of pneumonia on chest x-ray. Will withhold antibiotics at this time.
D-dimer ordered.
Critical care statement: A total of 40 minutes of critical care time was provided for this patient. This includes management of unstable vital signs, evaluation of the patient at bedside, reviewing the patient's pertinent medical records, review of
old EKGs and review of pertinent medical records. This time with separate from time utilized to perform the aforementioned documented procedures
*EKG
Interpreted by ED Provider?: Yes
EKG Intrepretation Date: 02/06/24
Heart Rate: 97
Rate: normal
Rhythm: sinus
Wainwright: normal axis
Interval: normal interval
*Critical Care Note
Total Time (30-74mins, 75-104mins- exclusive of procedures): 40 min
ED Attending Note
-
Portions of this chart may have been created with voice recognition software.� Occasional wrong word or��sound alike� substitutions may have occurred due to the inherent limitations of voice recognition software.
Discharge Plan
Departure
Patient Disposition: Admit
Date of Disposition: 02/06/24
Time of Disposition: 01:05
Admit to: IMU
Presentation/result/management discussed w/ accepting MD/DO: Hospitalist
Discharge Problem:
Hypoxia, COPD (chronic obstructive pulmonary disease), Fluid overload
Interventions
Interventions:
*Risk Screen - Suicide Last Done: 02/06/24 00:26
*General Assessment Last Done: 02/06/24 00:26
*Neglect/Abuse Screening Last Done: 02/06/24 00:26
ED- Fall Risk Assessment Last Done: 02/06/24 00:38
*Nursing Disposition Last Done: 02/06/24 03:00
ED- Cardiac Assessment Last Done: 02/06/24 00:38
ED- Pulmonary Assessment Last Done: 02/06/24 00:38
Discharge Date and Time
Discharge Date/Time: 02/06/24 03:01
[2024-02-06 01:01] LABS: NT-proBNP 6590 pg/ml; Troponin I 0.035 ng/ml
[2024-02-06] MEDS: LASIX 60 MG IV (01:03)
[2024-02-06] MEDS: DECADRON 10 MG IV (01:05)
[2024-02-06 01:06] LABS: COVID-19 Antigen Negative (Negative)
[2024-02-06] MEDS: NITROGLYCERIN PREMIX 250 IV (01:08)
[2024-02-06 01:17] LABS: Magnesium 2.2 mg/dl (1.6-2.3)
[2024-02-06] MEDS: VENTOLIN NEBULES 2.5 MG INH (01:22)
[2024-02-06] MEDS: DUONEB 3 ML INH (01:22)
--- NOTE | 2024-02-06 01:52 | HPS.HSE ---
Family Physician
-
Family Physician: Haroldo Klein
Chief Complaint
-
acute Resp distress, Hypoxia, , hi BP
History of Present Illness
HPI
78F BiB paramedics HX COPD, chr HFpEF seen at ER for acute resp distress- and Hypoxia at home
- worsening dyspnea, cough for lasr 2 days
- on supplemental O2 via 100% NRM on arival
- ASA as well as nebulizer treatment en route to the hospital, with minimal relief in symptoms
ROS
denies chest pain. Denies nausea, vomiting, or diarrhea. Denies back pain. Denies fever. Denies leg pain or swelling. Denies recent travel or surgery.
Medical History
Past Medical History
Past Medical History: Reports Other (possible COPD, hypertension, osteoarthritis, hypercholesterolemia, anxiety, breast cancer, diverticulosis)
Past Surgical History: Reports Other (Appendectomy, ovarian cyst removal, colon resection, breast lumpectomy,)
Social History
Tobacco: Former Smoker
Alcohol: None
Drug: None
Family History
Family History: Not pertinent
Allergies / Home Medications
Allergies reflects when Allergies were last updated in [facility].
Home Medications with original date entered in [facility]
Allergy/Medication List:
Allergies
Allergy/AdvReac Type Severity Reaction Status Date / Time
celecoxib [From Celebrex] Allergy Diarrhea,na Verified 09/19/23 17:04
usea
tramadol Allergy 'doesn't Verified 09/19/23 17:04
work'
Home Medications
atenolol 25 mg tablet 25 mg PO DAILY Blood pressure 08/21/22
rosuvastatin 40 mg tablet 40 mg PO QPM High cholesterol 08/21/22
therapeutic multivitamin 1 tab PO QPM Supplement 08/21/22
losartan 100 mg tablet 100 mg PO DAILY #30 tabs 08/23/22
acetaminophen 650 mg tablet,extended release 650 mg PO HS 09/19/23
amlodipine 5 mg tablet 5 mg PO DAILY 09/19/23
Review of Systems
-
Constitutional: Reports No Symptoms
EENT: Reports No Symptoms
Respiratory: Reports See HPI and Trouble Breathing
Cardiac: Reports No Symptoms
Abdomen/GI: Reports No Symptoms
: Reports No Symptoms
Musculoskeletal: Reports No Symptoms
Skin: Reports No Symptoms
Neurological: Reports No Symptoms
Endocrine: Reports No Symptoms
Hematologic/Lymphatic: Reports No Symptoms
Psych: Reports No Symptoms
Physical Exam
Vital Signs
Vital Signs
Temp Pulse Resp BP Pulse Ox
97.9 F 77 18 143/74 97
02/06/24 00:26 02/06/24 01:40 02/06/24 01:40 02/06/24 01:40 02/06/24 01:40
Physical Exam
General: No Apparent Distress, Comfortable (and tolerating BiPAP ) and Conversant
HEENT: NormoCephalic and Anicteric
Respiratory: Wheezes (bilatrally suspect due to acute pul edema )
Cardiac: S1/S2 and Regular Rhythm; No Murmur
GI: Soft, Non Tender and Non Distended
Rectal: Deferred by Provider
Genito-urinary: Deferred by me
Musculoskeletal: Other (b/l 1 plus edema LExs )
Neuro: AO x 3
Psych: Calm
Laboratory Results
-
02/06/24 00:22
02/06/24 00:22
Laboratory Results
Total Bilirubin 2.5 mg/dl (0.2-1.3) H 02/06/24 00:22
AST 68 U/L (14-36) H 02/06/24 00:22
ALT 58 U/L (0-35) H 02/06/24 00:22
Alkaline Phosphatase 103 U/L (38-126) 02/06/24 00:22
Troponin I 0.035 ng/ml H* 02/06/24 00:22
Data Reviewed
-
Diagnostic Radiology: Image Personally Visualized and interpreted
Lab Data: Labs Reviewed by me
Old Records: Reviewed
Impression/Plan
-
Reviewed VS: Afebrile HR 90 BP 190/90 --> 165/85 RR 26 POx hi 90s on NRM
Data
WCC 17.9
Unremarkable BMP
TB 2.5
AST 68
ALT 58
TPNI 0.035
proBNP 6590
My read on CXR: acute pul edema , cardiomegaly with increased interstitial markings and prominent Payam B lines bilaterally
09/20/23 TTE
LVEF 65- 70
Mild MR
mil to mod TR
Est PAP 55- 60
NEG Covid
Last hospitalist admission: 09/19/23 - 09/21/23 PDX: acute onchr HFpEF
ASSESSMENT & PLAN
Pending Rx reconciliation
Acute on chr HFpEF associated acute Pul edema
Associated acute Hypoxic RF require BiPAP
Associated HTN emergency - improved in response to IV Lasix and Nitro gtt
Elevated TPNI : suspect NIMI
- IV Lasix 40 BID
- cont Nitro gtt
- cont Losartan and atenolol
- daily IOs
- daily weights
- cont BiPAP 05/24 - wean as able
- DCA Cardiology consult
Elevated D Dimer
- pending CTA
Essential hypertension
- cont amlodipine, atenolol, losartan
- Observe BP on Nitro gtt
Hypercholesterolemia
-Continue statin
Anxiety
HX breast cancer
Diverticulitis status post sigmoid resection
OA
DVT Px: LMWH
Code:
IMU
--- NOTE | 2024-02-06 02:55 | PTCARENOTE ---
rec'd pt from ER via stretcher on bipap, monitor & ntg gtt at 50mic, pt oriented to ICU routine,pt cooperative, follows commands, denies pain, SR, weaning ntg as samra, weak distal pulses, + LE edema, skin warm/dry, bipap 12/5 w/ 5 liters o2 sat 95,
lungs w/ few exp wheezes,RR 20, no cough, + bowel sounds, no bm, abd soft/nontender, no n/v, purewick in place- voiding clear yellow urine
--- NOTE | 2024-02-06 04:00 | PTCARENOTE ---
bp 71/54, pt asymptomatic, ntg off, So CHADNRAKANT Bird notified after bp did not come up
0500- spoke w/ Dr Duncan about hypotension- to give nss bolus in 1/2 hr if bp stays low
--- NOTE | 2024-02-06 05:34 | PTCARENOTE ---
bp 134/71- nss bolus not given
[2024-02-06 05:51] LABS: ALT (SGPT) 51 U/L (0-35); AST (SGOT) 46 U/L (14-36); Albumin 3.8 g/dl (3.5-5.0); Alkaline Phosphatase 86 U/L (38-126); Blood Urea Nitrogen 13 mg/dl (7-17); Calcium 9.2 mg/dl (8.4-10.2); Carbon Dioxide 30 mmol/L (22-30); Chloride 95 mmol/L (98-107); Estimated Creatinine Clearance 44 ml/min; Glucose 155 mg/dl (70-99); HDL Cholesterol 52 mg/dl; LDL Cholesterol, Calculated 35 mg/dl; Sodium 135 mmol/L (135-145); Total Bilirubin 2.2 mg/dl (0.2-1.3); Total Cholesterol 100 mg/dl (50-199); Triglyceride 69 mg/dl (10-149); Very Low Density Lipoprotein 13 mg/dl (0-30); eGFR > 60.00
--- NOTE | 2024-02-06 08:22 | PTCARENOTE ---
0700 patient seen in bed . on BIPAP. AAO x3; Denies chest pain, or nausea. BP via left upper arm 134/94; SR 89; RR 24; . BIPAP taking off ; POX RA 83% On 3L 90%. Lungs diminished. No edema pedal pulses palatable . left and RT peripheral lines capped
flushed. Purwick draining clear yellow urine
--- NOTE | 2024-02-06 09:00 | PTCARENOTE ---
Short episode of SVT HR 147. pt denies chest pain or discomfort
[2024-02-06] MEDS: LOVENOX 60 MG SC ×2 (09:02→19:50)
[2024-02-06] MEDS: PLAVIX 300 MG PO (09:03)
[2024-02-06] MEDS: VIBRAMYCIN 100 MG PO ×2 (09:03→19:50)
[2024-02-06] MEDS: ROCEPHIN 1000 MG IV (09:03)
[2024-02-06] MEDS: ASPIRIN 325 MG PO (09:04)
[2024-02-06] MEDS: TENORMIN 25 MG PO (09:04)
[2024-02-06] MEDS: LASIX 40 MG IV ×2 (09:05→17:09)
--- NOTE | 2024-02-06 09:06 | W.PN.HOSP.TC ---
Today's Communication/Plan
-
empiric Abx
Lovenox therapeutic
Lasix
Cardio to follow
Assessment / Plan
Assessment / Plan
78yo F, former smoker with PMHX of HTN, HFpEF, HLD came with 2 days of SOB describes as inability to take deep breath and chest restriction. Had similar feeling on last admission, when was managed for CHF. FOund HTN emergency, elevated troponin and
leukocytosis with possible pneumonia.
A/P:
#Acute hypoxic insufficiency 2/2 HFpEF acute on chronic exacerbation
#HTN emergency with pulmonary effusions
Lasix, follolw electrolytes, daily weight, echo
Nitro dtip PRN
Wean off OI2
#Elevated troponin, concern for NSTEMI, cannot exclude 2/2 CHF
#ASCVD
Lovenox therapeutic
DAPT, cont statin and BB
Check TSH
LDL WNL
Cardio consult
Serial Troponin, EKG
Telemetry and Echo
#Elevated Ddimer
most likely acute phase reactant
No PE on CT chest
Check US LE
#Leukocytosis, concern for pneumonia
#Emphysema
Bronchodilators
Ceftriaxone/DOxy
COVID-19 neg
check influenza, RSV and procalcitonin
#Transaminitis with elevated bili
no abd pain
check US RUQ
follow LFT
DIrect bili and LDH
#Diverticulosis
#HLD
#OA
#Hx of breast CA
cont home meds
DVT ppx on therapeutic lovenox
DNR/DNI
I have spent at least 56min reviewing chart, test results, communication with consultants and direct patient care
Anticipated Discharge: > 48 hours
Subjective/Interval History
-
Date of Service: February 06, 2024
Objective Data
-
Labs:
Laboratory Results
08/19/24 08/19/24
00:22 05:22
WBC 17.9 H
Hgb 15.6
Hct 47.3 H
Plt Count 272
Sodium 135 135
Potassium 4.4 4.0
Chloride 98 95 L
Carbon Dioxide 25 30
BUN 12 13
Creatinine 0.7 0.8
Glucose 192 H 155 H
Calcium 9.9 9.2
Total Bilirubin 2.5 H 2.2 H
AST 68 H 46 H
ALT 58 H 51 H
Alkaline Phosphatase 103 86
Vital Signs:
Vital Signs
Temp Pulse Resp BP Pulse Ox
97.2 F 90 28 189/74 93
02/06/24 07:15 02/06/24 09:05 02/06/24 08:17 02/06/24 09:05 02/06/24 08:17
I&O
02/05/24 02/06/24 02/07/24
06:59 06:59 06:59
Intake Total 4.5 / 4.5
Output Total 650 / 650 500 / 500
Balance -645.5 / -645.5 -500 / -500
Review of Systems
-
History Source: Patient
All other systems: Reviewed and negative
Respiratory: Reports Trouble Breathing
Physical Exam
-
General: No Apparent Distress
HEENT: Normocephalic and Atraumatic
Respiratory: Clear to Auscultation
Cardiac: Regular Rhythm
GI: Soft, Nontender and Nondistended
Genito-urinary: No Costovertebral Tender
Musculoskeletal: No Clubbing, No Cyanosis, Edema, Right Lower Extrem and Edema, Left Lower Extrem
Skin: Warm
Neuro: Awake, Alert, Oriented and AO x 3
Psych: Calm
[2024-02-06] MEDS: SYMBICORT 160/4.5 MCG INHALER INH ×2 (09:16→18:45)
[2024-02-06] MEDS: STERILE WATER FOR INJECTION 10 ML IV (09:23)
--- NOTE | 2024-02-06 09:32 | CON.CAR ---
Addendum entered and electronically signed by Eligio Kamara MD 02/06/24 11:47:
I saw and examined the patient.
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
Comment: General: Well developed, well nourished in NAD.
Neck: Supple, no JVD, HJR, carotids +2 B/L, no bruits bilaterally.
Heart: Non displaced PMI, RRR, no murmurs, No S3, S4, no rubs.
Lungs: Scattered rhonchi at the bases
Abdomen: Normal bowel sounds, soft, non-tender, non-distended.
Extremities: No clubbing, cyanosis or edema bilaterally.
Neuro: Grossly nonfocal, awake, alert and oriented x3.
Oly has a history of diastolic CHF, hypertension, hypercalcemia, orthostasis, hyponatremia in the setting of HCTZ, breast cancer. She presented with shortness of breath and acute diastolic CHF. Troponin was elevated as well and cardiology
consulted. Also was hypotensive and IV nitroglycerin was discontinued.
Will treat with IV Lasix. Check echocardiogram. Suspect troponin elevation is non-NE ischemic injury. Will track troponins. Patient needs to be compliant at home with weighing herself daily on discharge. Discussed with nursing
Original Note:
Consultation
Consultation Request
Date/Time Consultation Requested: 02/06/24 at 0244
Date/Time Consultation Performed: 02/06/24 at 0958
Requesting Provider: Dr. Rodriguez
Performing Provider: Dr. Kamara
Reason for Consultation: Acute HF, HTN emergency
Medical History
-
History of Present Illness:
Patient came to [facility] very early this morning with a sense apprehension and SOB and was admitted with acute HF with a consultation to cardiology. Patient was admitted to 09/19/23 until 09/22/23 with acute HFpEF. Patient was diuresed that admission and
discharged to home on Lasix 20 mg PO daily. Patient was seen in the office within 2 weeks of discharge and appeared to be doing well, in fact her weight was down another 5 lbs and so her Lasix was cut to 20 mg MWF with a plan to continue daily
weights. Patient says that she stopped weighing herself daily in the last couple of months and also stopped checking her BP at home. She started with a sense of anxiety and apprehension in the last few days and then started with a dry cough. She was
more SOB going to be last night and awoke gasping for breath late last night and called 911. Paramedics found the patient in respiratory distress and 100% NRB was started and then switched to BiPAP in the ER. Nitro gtt started and then stopped due
to hypotension. Her usual dose of atenolol was restarted this AM. Her outpatient dose of losartan 50 mg daily has not been restarted yet.
PMH:
Preserved EF 65-70% by echo 09/20/23
h/o post-op acute HF following CARMEN in 2014
History of right breast cancer 1999
Hypertension
Hypercholesterolemia
History of diverticulitis
h/o orthostasis
h/o recurrent hyponatremia in the setting of HCTZ use
Past Medical History
Past Medical History: Other
Past Surgical History: Appendectomy, Gynecological (right ovarian cyst removed 2010 at time of appendectomy) and Orthopedic
Social History
Tobacco: Former Smoker
Alcohol: Occasional (monthly or less)
Drug: None
Personal:
Living: Alone
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
Family History
Family History: CAD
Allergies / Home Medications
Allergy/AdvReac Type Severity Reaction Status Date / Time
celecoxib [From Celebrex] Allergy Diarrhea,na Verified 09/19/23 17:04
usea
tramadol Allergy 'doesn't Verified 09/19/23 17:04
work'
�Medication �Instructions �Recorded �Confirmed �Type
atenolol 25 mg tablet 25 mg PO DAILY Blood pressure 08/21/22 09/19/23 History
rosuvastatin 40 mg tablet 40 mg PO QPM High cholesterol 08/21/22 09/19/23 History
therapeutic multivitamin 1 tab PO QPM Supplement 08/21/22 09/19/23 History
losartan 100 mg tablet 100 mg PO DAILY #30 tabs 08/23/22 09/19/23 Rx
acetaminophen 650 mg 650 mg PO HS Pain 09/19/23 09/19/23 History
tablet,extended release
furosemide 20 mg tablet 20 mg PO DAILY 30 days #30 tabs 09/21/23 Rx
Review of Systems
-
History Source: Patient
All other systems: Negative unless noted
Physical Exam
Vital Signs
Temp Pulse Resp BP Pulse Ox
97.2 F 90 28 189/74 93
02/06/24 07:15 02/06/24 09:05 02/06/24 08:17 02/06/24 09:05 02/06/24 08:17
GEN: NAD. AAOx3
HEENT: EOMI, MMM
LUNGS: Wearing oxygen at 2 L NC. CTA B/L, no wheezes or rales
CV: Reg, S1/S2, no murmur
ABD: soft, BS+, NT, ND
EXT: No cyanosis, clubbing, edema B/L. +DP/PT pulses B/L
NEURO: Gross non-focal
SKIN: Warm, pink, dry. No rash
Lab Results
02/06/24 00:22
02/06/24 05:22
Troponin I Cancelled 02/06/24 14:44
Air-S-Xxrfjenlsks Pept 6590 pg/ml 02/06/24 00:22
Impression / Plan
-
PCP: Dr. Klein
Cardiology: Dr. Kamara
Impression:
Acute hypoxic respiratory insufficiency
Acute HFpEF
HTN emergency
Preserved EF 65-70% by echo 09/20/23
h/o post-op acute HF following CARMEN in 2014
History of right breast cancer 1999
Hypertension
Hypercholesterolemia
History of diverticulitis
h/o orthostasis
h/o recurrent hyponatremia in the setting of HCTZ use
Echo 03/2015: Normal LV, EF 55-60%, normal RV, normal atria, normal mitral and aortic valve mild tricuspid regurgitation, pulmonary artery pressure 45-50 mmHg
Echo 09/20/23: EF 65-70%, mild MR, mild to mod TR with PAP 55-60 mmHg
Plan:
-Patient came to [facility] very early this morning with a sense apprehension and SOB and was admitted with acute HF with a consultation to cardiology. Patient was admitted to 09/19/23 until 09/22/23 with acute HFpEF. Patient was diuresed that admission
and discharged to home on Lasix 20 mg PO daily. Patient was seen in the office within 2 weeks of discharge and appeared to be doing well, in fact her weight was down another 5 lbs and so her Lasix was cut to 20 mg MWF with a plan to continue daily
weights. Patient says that she stopped weighing herself daily in the last couple of months and also stopped checking her BP at home. She started with a sense of anxiety and apprehension in the last few days and then started with a dry cough. She was
more SOB going to be last night and awoke gasping for breath late last night and called 911. Paramedics found the patient in respiratory distress and 100% NRB was started and then switched to BiPAP in the ER. Nitro gtt started and then stopped due
to hypotension. Her usual dose of atenolol was restarted this AM. Her outpatient dose of losartan 50 mg daily has not been restarted yet.
-Cont outpatient dose of atenolol 25 mg daily
-Start losartan 100 mg daily. Patient was taking losartan 100 mg daily at last hospital d/c 09/22/23, but dose cut to 50 mg daily after call to cardiology office 09/30/23. Not sure why losartan/HCTZ is listed in her med rec, this seems incorrect and
was not prescribed by cardiology or her PCP as an outpatient.
-Patient should NEVER be placed on HCTZ due to recurrent hyponatremia when taking HCTZ.
-Initial Troponin was 0.035 and then 0.20. ECG without acute ischemic changes. No chest pain. Echo f/u study ordered. This is likely a nonischemic myocardial Troponin elevation due to acute HF and HTN emergency.
-Cont Lasix 40 mg IV BID. Patient was not taking Lasix prior to admission, it was stopped by her PCP a couple of months ago and then patient stopped weighing herself daily.
[2024-02-06 10:46] LABS: Direct Bilirubin 0.5 mg/dl (0.0-0.4); LDH 331 U/L (120-246)
[2024-02-06 11:30] LABS: TSH Reflex To Free T4 0.75 uIU/ml (0.47-4.68)
--- NOTE | 2024-02-06 12:10 | CM ---
CM following re: discharge planning.
Reviewed pt's chart, met with pt.
Pt is an 78 year old female, admitted with primary dx of Acute hypoxic insufficiency 2/2 HFpEF acute on chronic exacerbation.
Pt reports she lives alone in an apartment, no steps, has 3 children and [place]. 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 no DME, VN or SNF history. Pt stated she just started outpatient PT/OT at [facility]
and she preferred to resume outpatient PT/OT upon the discharge. Pt stated she has best friend and she will transport her home at discharge.
PCP: Haroldo Klein
Pharmacy: [facility]
D/C plan: home with resumptions of outpatient PT/OT at [facility]. Friend to transport at discharge.
CM will follow with discharge plan updates as hospitalization progresses
[2024-02-06] MEDS: COZAAR 100 MG PO (12:53)
[2024-02-06 13:43] LABS: Troponin I 0.216 ng/ml
[2024-02-06 16:26] LABS: Glycohemoglobin (HgbA1c) 5.8 % (4.0-5.6)
[2024-02-06] MEDS: CRESTOR 40 MG PO (17:08)
--- NOTE | 2024-02-06 17:42 | PTCARENOTE ---
OOB chair for about 2 hrs . Transfer one person assist due to unsteady gait. on 2L of oxygen via nasal cannula SR 81 BP 156/89 Denies chest pain denies feeling SOB. Update provided to pt's son
[2024-02-06 20:05] LABS: Troponin I 0.179 ng/ml
[2024-02-06] MEDS: CARDIZEM 5 MG IV (20:29)
[2024-02-06] MEDS: CARDIZEM 125 IV (20:34)
--- NOTE | 2024-02-06 20:40 | PTCARENOTE ---
Addendum entered by Karis Chaves RN 02/06/24 21:58:
HR improved on Cardizem gtt; remains Afib on the monitor with a HR 90-100, BP 132/81.
Original Note:
During rounds at shift change, pt noted to be in Afib on the monitor with HR 110's-120's; pt denies a hx of same. Pt AAOx3, denies pain/CP, palpitations, SOB. BP 152/93, SpO2 95% on 2L O2 NC. EKG obtained; reads atrial fibrillation with RVR. Most
recent troponin sent by nick CHEATHAM ~ 1900. 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 Plan to hold Plavix in the AM per cardiology. AFib
education provided to pt, pt without questions at this time, resting comfortably in bed.
[2024-02-06] MEDS: MELATONIN 3 MG PO (22:43)
[2024-02-07] VITALS (31 sets, daily range): BP systolic 100–187; BP diastolic 49–138; BMI 22.0; BMI 23.5
--- NOTE | 2024-02-07 00:45 | PTCARENOTE ---
Cardizem gtt placed on standby at this time, per protocol. Pt remains in Afib on the monitor.
[2024-02-07 04:44] LABS: % Basophils 0.2 % (0-2); % Eosinophils 0.3 % (0-6); % Immature Granulocytes 0.4 % (0-0.5); % Lymphocytes 16.3 % (20.5-51.1); % Monocytes 8.8 % (1.7-9.3); Absolute Eosinophils 0.1 10^3/uL (0-0.7); Absolute Immature Granulocytes 0.1 10^3/uL (0-0.05); Absolute Lymphocytes 2.4 10^3/uL (1.2-3.4); Absolute Monocytes 1.3 10^3/uL (0.1-0.6); Absolute Neutrophils 10.8 10^3/uL (1.4-6.5); Hematocrit 37.6 % (37.0-47.0); Hemoglobin 12.9 g/dL (12.0-16.0); Mean Corp Hgb Conc. 34.3 g/dL (33.0-37.0); Mean Corpuscular Hgb 28.6 pg (27.0-31.0); Mean Corpuscular Volume 83.4 fL (81.0-99.0); Mean Platelet Volume 12.1 fL (7.4-10.4); Nucleated Red Blood Cells % 0 %; Platelet Count 190 10^3/uL (130-400); Red Blood Cell Count 4.51 10^6/uL (4.20-5.40); Red Cell Dist. Width 13.2 % (11.5-14.5); White Blood Cell Count 14.6 10^3/uL (4.8-10.8)
[2024-02-07 05:02] LABS: ALT (SGPT) 37 U/L (0-35); AST (SGOT) 26 U/L (14-36); Albumin 3.4 g/dl (3.5-5.0); Alkaline Phosphatase 73 U/L (38-126); Blood Urea Nitrogen 21 mg/dl (7-17); Calcium 9.4 mg/dl (8.4-10.2); Carbon Dioxide 34 mmol/L (22-30); Chloride 94 mmol/L (98-107); Estimated Creatinine Clearance 44 ml/min; Glucose 118 mg/dl (70-99); Potassium 3.7 mmol/L (3.5-5.1); Sodium 133 mmol/L (135-145); Total Bilirubin 1.9 mg/dl (0.2-1.3); Total Protein 5.5 g/dl (6.3-8.2); eGFR > 60.00
[2024-02-07 05:03] LABS: Procalcitonin 0.08 ng/ml (0.0-0.25)
[2024-02-07 05:21] LABS: Troponin I 0.112 ng/ml
[2024-02-07] MEDS: VENTOLIN NEBULES 2.5 MG INH (07:14)
[2024-02-07] MEDS: SYMBICORT 160/4.5 MCG INHALER INH (07:17)
--- NOTE | 2024-02-07 08:00 | PTCARENOTE ---
AFIB HR 100-130s. started back on cardizem gtt @ 5 and given AM medications. patient anxious. emotional support provided. son at bedside. 2L nc. pulse ox 97%. diminished at bases. +bs. inc of urine. pure wick in place. lasix given. pulses weakly
palpable. no edema. min assist x1 to chair from bed. Will continue ot monitor.
[2024-02-07] MEDS: PLAVIX 75 MG PO (09:06)
[2024-02-07] MEDS: VIBRAMYCIN 100 MG PO ×2 (09:06→19:57)
[2024-02-07] MEDS: COZAAR 100 MG PO (09:06)
[2024-02-07] MEDS: LOVENOX 60 MG SC (09:07)
[2024-02-07] MEDS: TENORMIN 25 MG PO (09:07)
[2024-02-07] MEDS: LASIX 40 MG IV ×2 (09:07→16:17)
[2024-02-07] MEDS: LOW STRENGTH ASPIRIN 81 MG PO (09:07)
[2024-02-07] MEDS: STERILE WATER FOR INJECTION 10 ML IV (09:08)
[2024-02-07] MEDS: ROCEPHIN 1000 MG IV (09:08)
--- NOTE | 2024-02-07 09:43 | W.PN.HOSP.TC ---
Today's Communication/Plan
-
cont cardizem and lovenox.
Stop Ceftriaxone
Assessment / Plan
Assessment / Plan
78yo F, former smoker with PMHX of HTN, HFpEF, HLD came with 2 days of SOB describes as inability to take deep breath and chest restriction. Had similar feeling on last admission, when was managed for CHF. FOund HTN emergency, elevated troponin and
leukocytosis with possible bronchitis.
A/P:
#Acute hypoxic insufficiency 2/2 HFpEF acute on chronic exacerbation
#HTN emergency with pulmonary effusions
Lasix, follol electrolytes, daily weight, echo
Nitro dtip PRN
Wean off OI2
#Elevated troponin, concern for NSTEMI, cannot exclude 2/2 CHF
#ASCVD
#New onset Afib
Lovenox therapeutic
DAPT, cont statin and BB
TSH WNL
LDL WNL
Cardio consult
Serial Troponin, EKG
Telemetry and
Echo: preserved EF, grade 2 diastolic dysfunction, no clinically significant valvular disease, no wall motion abnormalities, elevated
#Elevated Ddimer
most likely acute phase reactant
No PE on CT chest
US LE neg for DVT
#Avascular L groin lesion
CT a/p
#Leukocytosis, concern for pneumonia
#Emphysema
#Acute bronchitis
Bronchodilators
Ceftriaxone/DOxy
COVID-19 neg
influenza, RSV neg
procalcitonin low - stop ceftriaxone. can cont Doxy for possible subtile bronchitis, since leukocytosis
#Transaminitis with indirect bilirubinemia
no abd pain
US RUQ with small hemangioma and small gall bladder polyp - outpatient monitoring advised
follow LFT
Check hepatitis panel
LDH mildly elevated most likely 2/2 acute disease. check Haptoglobin, but no anemia
#Diverticulosis
#HLD
#OA
#Hx of breast CA
cont home meds
DVT ppx on therapeutic lovenox
DNR/DNI
I have spent at least 56min reviewing chart, test results, communication with consultants and direct patient care
Anticipated Discharge: > 48 hours
Subjective/Interval History
-
Date of Service: February 07, 2024
Objective Data
-
Labs:
Laboratory Results
02/07/24
04:10
WBC 14.6 H
Hgb 12.9
Hct 37.6
Plt Count 190 D
Sodium 133 L
Potassium 3.7
Chloride 94 L
Carbon Dioxide 34 H
BUN 21 H
Creatinine 0.8
Glucose 118 H
Calcium 9.4
Total Bilirubin 1.9 H
AST 26
ALT 37 H
Alkaline Phosphatase 73
Vital Signs:
Vital Signs
Temp Pulse Resp BP Pulse Ox
98.5 F 112 18 122/70 97
02/07/24 03:20 02/07/24 09:06 02/07/24 07:17 02/07/24 09:06 02/07/24 07:17
I&O
02/06/24 02/07/24 02/08/24
06:59 06:59 06:59
Intake Total 4.5 / 4.5 500 / 500
Output Total 650 / 650 2250 / 2250
Balance -645.5 / -645.5 -1750 / -1750
Review of Systems
-
History Source: Patient
All other systems: Reviewed and negative
Physical Exam
-
General: No Apparent Distress
HEENT: Normocephalic
Respiratory: Clear to Auscultation
Cardiac: Irregular Rhythm and Tachycardic
GI: Soft, Nontender and Nondistended
Genito-urinary: No Costovertebral Tender
Musculoskeletal: No Clubbing, No Cyanosis and No Edema
Neuro: Awake, Alert, Oriented and AO x 3
Psych: Calm
--- NOTE | 2024-02-07 09:59 | W.PN.CARDCBS ---
Addendum entered and electronically signed by Eligio Kamara MD 02/07/24 10:05:
Additional problem is atrial fibrillation starting February 06
Original Note:
Today's Communication / Plan
-
Continue IV Lasix for continued hypoxemia and probable CHF
Get standing scale weights as bed scale weights appear to be inaccurate
Change atenolol to Toprol for better heart rate control continue IV Cardizem for
Start Eliquis and stop Lovenox and Plavix
Impression / Plan
-
PCP: Dr. Klein
Cardiology: Dr. Kamara
Impression:
Acute hypoxic respiratory insufficiency
Acute HFpEF
HTN emergency
Preserved EF 65-70% by echo 09/20/23
h/o post-op acute HF following CARMEN in 2014
History of right breast cancer 1999
Hypertension
Hypercholesterolemia
History of diverticulitis
h/o orthostasis
h/o recurrent hyponatremia in the setting of HCTZ use
Nonischemic myocardial injury
Echo 03/2015: Normal LV, EF 55-60%, normal RV, normal atria, normal mitral and aortic valve mild tricuspid regurgitation, pulmonary artery pressure 45-50 mmHg
Echo 09/20/23: EF 65-70%, mild MR, mild to mod TR with PAP 55-60 mmHg
Echocardiogram 02/06/2024: Ejection fraction 55 to 60%, mild concentric LVH
Plan:
She remains on 2 L of oxygen.
Weights appear to be inaccurate. Will ask to get weight on a standing scale
Continue IV Lasix for hypoxemia and CHF
Remains on Rocephin as well for possible pneumonia
She remains in A-fib with rapid rate.
Will change Tenormin to Toprol and increase to 25 mg p.o. twice daily
Continue IV Cardizem for now
Will start Eliquis and discontinue Lovenox
Also stop Plavix with start of Eliquis and will continue aspirin
Troponin elevation felt to be nonischemic myocardial injury -echocardiogram unchanged
Discussed with nursing and updated son Harshil in detail by phone
PREADMIT DATA
Patient came to [facility] very early this morning with a sense apprehension and SOB and was admitted with acute HF with a consultation to cardiology. Patient was admitted to 09/19/23 until 09/22/23 with acute HFpEF. Patient was diuresed that admission and
discharged to home on Lasix 20 mg PO daily. Patient was seen in the office within 2 weeks of discharge and appeared to be doing well, in fact her weight was down another 5 lbs and so her Lasix was cut to 20 mg MWF with a plan to continue daily
weights. Patient says that she stopped weighing herself daily in the last couple of months and also stopped checking her BP at home. She started with a sense of anxiety and apprehension in the last few days and then started with a dry cough. She was
more SOB going to be last night and awoke gasping for breath late last night and called 911. Paramedics found the patient in respiratory distress and 100% NRB was started and then switched to BiPAP in the ER. Nitro gtt started and then stopped due
to hypotension. Her usual dose of atenolol was restarted this AM. Her outpatient dose of losartan 50 mg daily has not been restarted yet.
Progress Note - Civil Cad Tech
Subjective
Date of Service: February 07, 2024
No complaints. Remains on 2 L of oxygen. Went into atrial fibrillation during the night and is on IV Cardizem
Objective
Labs:
02/07/24 04:10
02/07/24 04:10
Labs
Hgb 12.9 g/dL (12.0-16.0) 02/07/24 04:10
Hct 37.6 % (37.0-47.0) 02/07/24 04:10
Plt Count 190 10^3/uL (130-400) D 02/07/24 04:10
Sodium 133 mmol/L (135-145) L 02/07/24 04:10
Potassium 3.7 mmol/L (3.5-5.1) 02/07/24 04:10
BUN 21 mg/dl (7-17) H 02/07/24 04:10
Creatinine 0.8 mg/dL (0.6-1.0) 02/07/24 04:10
Glucose 118 mg/dl (70-99) H 02/07/24 04:10
Troponins
02/06/24 02/06/24 02/06/24
00:22 02:44 05:22
Troponin I 0.035 H* Cancelled 0.200 H* D
02/06/24 02/06/24 02/06/24
08:44 13:00 14:44
Troponin I Cancelled 0.216 H* Cancelled
02/06/24 02/07/24
19:09 04:10
Troponin I 0.179 H* 0.112 H*
Vital Signs and I&O:
Vital Signs
Temp Pulse Resp BP Pulse Ox
98.5 F 112 18 122/70 97
02/07/24 03:20 02/07/24 09:06 02/07/24 07:17 02/07/24 09:06 02/07/24 07:17
Vital Signs
Temp Pulse Resp BP Pulse Ox
98.5 F 112 18 122/70 97
02/07/24 03:20 02/07/24 09:06 02/07/24 07:17 02/07/24 09:06 02/07/24 07:17
Intake & Output
02/05/24 02/06/24 02/07/24 02/08/24
06:59 06:59 06:59 06:59
Intake Total 4.5 / 4.5 500 / 500
Output Total 650 / 650 2250 / 2250
Balance -645.5 / -645.5 -1750 / -1750
Physical Exam
Physical Exam
General: Well developed, well nourished in NAD.
Neck: Supple, no JVD, HJR, carotids +2 B/L, no bruits bilaterally.
Heart: Non displaced PMI, irregular, no murmurs, No S3, S4, no rubs.
Lungs: Scattered rhonchi
Extremities: No clubbing, cyanosis or edema bilaterally.
Neuro: Grossly nonfocal, awake, alert and oriented x3.
[2024-02-07] MEDS: OMNIPAQUE 50 ML PO (10:55)
[2024-02-07 11:03] LABS: Hepatitis B Surface Antigen Negative (Negative)
[2024-02-07 11:20] LABS: Hepatitis B Surface Antibody Negative; Hepatitis C Antibody Negative (Negative)
[2024-02-07] MEDS: ELIQUIS 2.5 MG PO ×2 (11:44→19:59)
--- NOTE | 2024-02-07 13:04 | PN.CDI ---
Addendum entered and electronically signed by Shakir Rodriguez MD 02/07/24 17:02:
patient rapidly improved and was comfortable on lower O2 settings - cannot state failure
Addendum entered and electronically signed by Shakir Rodriguez MD 02/07/24 17:02:
on my assessment i had concern for NSTEMI, will not currently change diagnosis
Original Note:
CDI
- -
CDI:
Physician Documentation Request
Admit Date: 02/06/24 02:11
Dear Doctor Michael,
Please review the following and provide your response in the progress notes.
Clinical Indicators:
- 02/06 Cardiology 'Troponin elevation felt to be nonischemic myocardial injury -echocardiogram unchanged'
- 02/06- PN 'Elevated troponin, concern for NSTEMI'
Laboratory Tests
02/06/24 02/06/24 02/06/24
00:22 05:22 13:00
Troponin I 0.035 H* 0.200 H* D 0.216 H*
02/06/24 02/07/24
19:09 04:10
Troponin I 0.179 H* 0.112 H*
Please clarify the following regarding the documented elevated troponins:
Non-ischemic myocardial injury
NSTEMI
Other
Use of terms such as suspected, likely, concern for, or probable (associated with a specific diagnosis that is being evaluated, monitored, or treated as if it exists) are acceptable and can be coded in the inpatient setting, when documented at the
time of discharge.
Thank you,
Albaro Thompson RN
CDI Specialist
Please use your independent medical judgment in providing your response.
--- NOTE | 2024-02-07 13:07 | PN.CDI ---
CDI
- -
CDI:
Physician Documentation Request
Admit Date: 02/06/24 02:11
Dear Doctor Michael,
Please review the following and provide your response in the progress notes.
Clinical Indicators:
- 02/05 ER Physician 'Per paramedics, patient was found to be in severe respiratory distress at home with hypoxia, requiring supplemental oxygen via 100% nonrebreather'
- 02/05 H&P 'acute Hypoxic RF require BiPAP...acute Resp distress'
- Documented VS on admission on 15L O2 NRB, placed on BiPap 05/24
- 02/06 PN 'Acute hypoxic insufficiency'
Clarify which of the following accurately represents the patient's respiratory status:
Acute hypoxic respiratory failure on admission
Hypoxia
Other
Additional information for Respiratory Failure:
Recognized criteria for Respiratory Failure (Source: [facility] Hospitalist Apr 2013)
ABGs: (1 or more) Symptoms Please indicate type if known
1. p)2 <60 or RA SPO2 <91% on RA 1. Tachypnea, SOB, dyspnea Hypoxic
2. pCO2 50 and pH <7.35 2. Use of accessory muscles Hypercapnic
3. pO2 decrease of pCO2 increase by 3. Pallor or cyanosis Hypoxic and Hypercapnic
10 mmHg from baseline if known 4. Anxiety or restlessness Unable to determine
5. Unable to speak in full sentences
Supplemental O2 of > 40% (5LPM) Intubation is not required
Use of terms such as suspected, likely, concern for, or probable (associated with a specific diagnosis that is being evaluated, monitored, or treated as if it exists) are acceptable and can be coded in the inpatient setting, when documented at the
time of discharge.
Thank you,
Albaro Thompson RN
CDI Specialist
Please use your independent medical judgment in providing your response.
--- NOTE | 2024-02-07 13:30 | PTCARENOTE ---
sent via stretcher for CT. drank all of contrast. able to transport with assist x1 to stretcher. continues with 5mg cardizem. HR 80's -90s. AFIB. will continue to monitor.
[2024-02-07 15:00] LABS: Hepatitis B Core Ab, Total Negative (Negative)
--- NOTE | 2024-02-07 16:30 | PTCARENOTE ---
Received pt resting in chair with son at bedside. Pt is AOX3, denies any pain. HR 70's in AFIB. Cardizem gtt infusing at 5mg/hr through L AC INT. R forearm INT capped. Will turn off gtt to keep HR between 80-100. HR irregular. Trace lower extremity
edema. Weak pedal pulses. Lungs diminished throughout. SOB on exertion. 95-97% on 2L NC. Abdomen soft. + bowel sounds. Purewick in place. Pt assisted back into bed with one assistance. Updated with plan of care. Will continue to monitor pt. closely
[2024-02-07] MEDS: CRESTOR 40 MG PO (17:56)
--- NOTE | 2024-02-07 18:22 | PTCARENOTE ---
Pt.'s HR 105 -120's, continues to be in AFIB. Will restart cardizem gtt at 5mg/hr
[2024-02-07] MEDS: SYMBICORT 160/4.5 MCG INHALER 2 PUFF INH (19:39)
[2024-02-07] MEDS: TOPROL XL 25 MG PO (19:59)
--- NOTE | 2024-02-07 20:28 | PTCARENOTE ---
Received pt from nick CHEATHAM. Pt is AAOx3. Afib on the monitor, Cardizem gtt @ 5mg/hr. On 2L NC O2 sat 95%, lungs diminished. BSCx1. Pw in place for incont. Pt is laying comfortable in bed with call lebron in reach.
[2024-02-07] MEDS: MELATONIN 3 MG PO (22:49)
[2024-02-08] VITALS (15 sets, daily range): BP systolic 105–156; BP diastolic 58–120; PULSE 102; O2SAT 95; BMI 22.7
--- NOTE | 2024-02-08 02:55 | DOWNTIME ---
There was a [facility] Client Manager [employer] Downtime on 02/08/2024 from 0100 to 02/08/2024 at 0252. Downtime documentation of patient's care, including medication administrations, has been reconciled in the electronic record per guidelines. Refer to the
patient's paper chart under the miscellaneous tab to see printed paper medication records and downtime forms.
--- NOTE | 2024-02-08 04:20 | W.PN.UPDATE ---
Update Note
Progress Note Update
Late note from .
RN noted irregular rhythm. EKG done and is Afib with RVR HR 110-120, stable VS otherwise. no hx of prior Afib. On Lovenox at present. Glass Technologist recommended Cardizem IV and hold Plavix. Orders in. Patient asymptomatic, Denies any chest pain or
Shortness of breath.
--- NOTE | 2024-02-08 04:34 | PTCARENOTE ---
SHERYL Taylor notified. Pt HR 60-70 on Cardizem gtt @ 5 mg. Pt with multiple pauses, one 2.36 second pause. Cardizem gtt decreased to @ 2.5 mg
[2024-02-08] MEDS: SYMBICORT 160/4.5 MCG INHALER 2 PUFF INH (07:44)
--- NOTE | 2024-02-08 08:09 | W.PN.HOSP.TC ---
Addendum entered and electronically signed by Shakir Rodriguez MD 02/08/24 09:31:
78yo F, former smoker with PMHX of HTN, HFpEF, HLD came with 2 days of SOB describes as inability to take deep breath and chest restriction. Had similar feeling on last admission, when was managed for CHF. FOund HTN emergency, elevated troponin and
leukocytosis with possible bronchitis.
A/P:
#Acute hypoxic insufficiency 2/2 HFpEF acute on chronic exacerbation
#HTN emergency with pulmonary effusions
Lasix, follol electrolytes, daily weight, echo
Nitro dtip PRN
Wean off OI2
#Elevated troponin, NSTEMI ruled out, non-ischemic cardiac injury
#ASCVD
#New onset Afib
Lovenox therapeutic switch to Eliquis
ASA, cont statin and BB
TSH WNL
LDL WNL
Cardio consult
Serial Troponin, EKG
Telemetry and
Echo: preserved EF, grade 2 diastolic dysfunction, no clinically significant valvular disease, no wall motion abnormalities
#Elevated Ddimer
most likely acute phase reactant
No PE on CT chest
US LE neg for DVT
#Avascular L groin lesion
most likely a complex bursal collection or old hematoma, however since neoplasia cannot be excluded - Onc consult
#Leukocytosis 2/2 Acute bronchitis
#Emphysema
Bronchodilators
COVID-19 neg
influenza, RSV neg
procalcitonin low - stop ceftriaxone. can cont Doxy for possible subtile bronchitis, since leukocytosis
#Transaminitis with indirect bilirubinemia - recurrent at least since 2018
no abd pain
US RUQ with small hemangioma and small gall bladder polyp - outpatient monitoring advised
follow LFT
Check hepatitis panel
LDH mildly elevated most likely 2/2 acute disease. check Haptoglobin, but no anemia
#Hx of b/l CARMEN
#Hepatic hemangioma 2.9cm unchanged since 2014
#b/l renal cysts
No additional mgmt advised
#Diverticulosis
#DJD
follow with PCP
High fiber diet
#HLD
#OA
#Hx of breast CA
cont home meds
DVT ppx on therapeutic lovenox
DNR/DNI
I have spent at least 56min reviewing chart, test results, communication with consultants and direct patient care
Original Note:
Today's Communication/Plan
-
Still uncontrolled Afib overnight on Cardizem drip
Assessment / Plan
Assessment / Plan
78yo F, former smoker with PMHX of HTN, HFpEF, HLD came with 2 days of SOB describes as inability to take deep breath and chest restriction. Had similar feeling on last admission, when was managed for CHF. FOund HTN emergency, elevated troponin and
leukocytosis with possible bronchitis.
A/P:
#Acute hypoxic insufficiency 2/2 HFpEF acute on chronic exacerbation
#HTN emergency with pulmonary effusions
Lasix, follol electrolytes, daily weight, echo
Nitro dtip PRN
Wean off OI2
#Elevated troponin, NSTEMI ruled out, non-ischemic cardiac injury
#ASCVD
#New onset Afib
Lovenox therapeutic switch to Eliquis
ASA, cont statin and BB
TSH WNL
LDL WNL
Cardio consult
Serial Troponin, EKG
Telemetry and
Echo: preserved EF, grade 2 diastolic dysfunction, no clinically significant valvular disease, no wall motion abnormalities, elevated
#Elevated Ddimer
most likely acute phase reactant
No PE on CT chest
US LE neg for DVT
#Avascular L groin lesion
CT a/p
#Leukocytosis 2/2 Acute bronchitis
#Emphysema
Bronchodilators
Ceftriaxone/DOxy
COVID-19 neg
influenza, RSV neg
procalcitonin low - stop ceftriaxone. can cont Doxy for possible subtile bronchitis, since leukocytosis
#Transaminitis with indirect bilirubinemia
no abd pain
US RUQ with small hemangioma and small gall bladder polyp - outpatient monitoring advised
follow LFT
Check hepatitis panel
LDH mildly elevated most likely 2/2 acute disease. check Haptoglobin, but no anemia
#Diverticulosis
#HLD
#OA
#Hx of breast CA
cont home meds
DVT ppx on therapeutic lovenox
DNR/DNI
I have spent at least 56min reviewing chart, test results, communication with consultants and direct patient care
Anticipated Discharge: > 48 hours
Subjective/Interval History
-
Date of Service: February 08, 2024
Objective Data
-
Labs:
Laboratory Results
02/08/24
07:17
WBC Pending
Hgb Pending
Hct Pending
Plt Count Pending
Sodium Pending
Potassium Pending
Chloride Pending
Carbon Dioxide Pending
BUN Pending
Creatinine Pending
Glucose Pending
Calcium Pending
Total Bilirubin Pending
AST Pending
ALT Pending
Alkaline Phosphatase Pending
Vital Signs:
Vital Signs
Temp Pulse Resp BP Pulse Ox
97.8 F 84 14 114/58 94
02/08/24 04:05 02/08/24 07:49 02/08/24 07:49 02/08/24 06:00 02/08/24 07:49
I&O
02/07/24 02/08/24 02/09/24
06:59 06:59 06:59
Intake Total 500 / 500 750 / 750
Output Total 2250 / 2250 1320 / 1320
Balance -1750 / -1750 -570 / -570
Review of Systems
-
History Source: Patient
All other systems: Reviewed and negative
Respiratory: Reports Trouble Breathing
Physical Exam
-
General: No Apparent Distress
HEENT: Normocephalic
Respiratory: Clear to Auscultation
Cardiac: Irregular Rhythm
GI: Soft, Nontender and Nondistended
Musculoskeletal: No Clubbing, No Cyanosis and No Edema
Skin: Warm
Neuro: Awake, Alert, Oriented and AO x 3
Psych: Calm
--- NOTE | 2024-02-08 08:41 | W.PN.CARDCBS ---
Today's Communication / Plan
-
Wean Cardizem gtt today by increasing Toprol XL to 50 mg BID
Check cost of Eliquis
Cont diuresis
52 minutes face to face, chart prep, changing orders
Impression / Plan
-
PCP: Dr. Klein
Cardiology: Dr. Kamara
Impression:
Acute hypoxic respiratory insufficiency
Acute HFpEF
Newly diagnosed paroxysmal Afib with RVR
HTN emergency
Preserved EF 65-70% by echo 09/20/23
h/o post-op acute HF following CARMEN in 2014
History of right breast cancer 1999
Hypertension
Hypercholesterolemia
History of diverticulitis
h/o orthostasis
h/o recurrent hyponatremia in the setting of HCTZ use
Nonischemic myocardial injury
Echo 03/2015: Normal LV, EF 55-60%, normal RV, normal atria, normal mitral and aortic valve mild tricuspid regurgitation, pulmonary artery pressure 45-50 mmHg
Echo 09/20/23: EF 65-70%, mild MR, mild to mod TR with PAP 55-60 mmHg
Echo 02/06/24: Ejection fraction 55 to 60%, mild concentric LVH, stage II diastolic dysfunction, mild MR, no AAS/AI, mild to moderate TR with PAP 40 to 45 mmHg no significant change compared to echo from 09/20/23
Plan:
-Patient with new Afib starting 02/07/24. Remains in Afib 02/08/24 and Cardizem gtt restarted overnight for RVR.
-Wean Cardizem gtt 02/08/24.
-Outpatient dose of atenolol changed to Toprol XL this admission. Increase dose of Toprol XL to 50 mg BID on 02/08/24.
-Reviewed with patient the possibility of a CV prior to d/c and she is agreeable, will also need to review with her son. Patient denies palpitations, but reports anxiety which could be from Afib or from missed doses of Zoloft since admission.
-Patient was briefly placed on DAPT on admission due to elevated Troponin. Elevated Troponin being managed as a nonischemic myocardial injury Troponin elevation. Plavix stopped 02/07/24.
-New to Eliquis 2.5 mg BID (age 78, wt 56.3 kg, Cre 0.8). Will ask CM to help check on cost
-Remains hypoxic on 2 L NC. Patient was not using oxygen prior to admission. CT abd/pelvis 02/07/24 showed ongoing small B/L pleural effusions and vascular congestion. Will continue to diurese
-Patient weighed 131 lbs on home scale day of admission 02/06/24 and is down to 124 lbs on standing scale 02/08/24. Cont diuresis as noted. Lasix 40 mg IV BID. Patient was not taking a diuretic prior to admission.
HPI: Patient came to [facility] very early this morning with a sense apprehension and SOB and was admitted with acute HF with a consultation to cardiology. Patient was admitted to 09/19/23 until 09/22/23 with acute HFpEF. Patient was diuresed that
admission and discharged to home on Lasix 20 mg PO daily. Patient was seen in the office within 2 weeks of discharge and appeared to be doing well, in fact her weight was down another 5 lbs and so her Lasix was cut to 20 mg MWF with a plan to
continue daily weights. Patient says that she stopped weighing herself daily in the last couple of months and also stopped checking her BP at home. She started with a sense of anxiety and apprehension in the last few days and then started with a dry
cough. She was more SOB going to be last night and awoke gasping for breath late last night and called 911. Paramedics found the patient in respiratory distress and 100% NRB was started and then switched to BiPAP in the ER. Nitro gtt started and
then stopped due to hypotension. Her usual dose of atenolol was restarted this AM. Her outpatient dose of losartan 50 mg daily has not been restarted yet.
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
Subjective
Date of Service: February 08, 2024
She feels apprehensive and anxious
Objective
Labs:
Labs
Hgb 12.9 g/dL (12.0-16.0) 02/07/24 04:10
Hct 37.6 % (37.0-47.0) 02/07/24 04:10
Plt Count 190 10^3/uL (130-400) D 02/07/24 04:10
Sodium 133 mmol/L (135-145) L 02/07/24 04:10
Potassium 3.7 mmol/L (3.5-5.1) 02/07/24 04:10
BUN 21 mg/dl (7-17) H 02/07/24 04:10
Creatinine 0.8 mg/dL (0.6-1.0) 02/07/24 04:10
Glucose 118 mg/dl (70-99) H 02/07/24 04:10
Troponins
02/06/24 02/06/24 02/06/24
00:22 02:44 05:22
Troponin I 0.035 H* Cancelled 0.200 H* D
02/06/24 02/06/24 02/06/24
08:44 13:00 14:44
Troponin I Cancelled 0.216 H* Cancelled
02/06/24 02/07/24
19:09 04:10
Troponin I 0.179 H* 0.112 H*
Vital Signs and I&O:
Vital Signs
Temp Pulse Resp BP Pulse Ox
97.8 F 84 14 114/58 94
02/08/24 04:05 02/08/24 07:49 02/08/24 07:49 02/08/24 06:00 02/08/24 07:49
Vital Signs
Temp Pulse Resp BP Pulse Ox
97.8 F 84 14 114/58 94
02/08/24 04:05 02/08/24 07:49 02/08/24 07:49 02/08/24 06:00 02/08/24 07:49
Intake & Output
0802/07/24 02/08/24 02/09/24
06:59 06:59 06:59 06:59
Intake Total 4.5 / 4.5 500 / 500 750 / 750
Output Total 650 / 650 2250 / 2250 1320 / 1320
Balance -645.5 / -645.5 -1750 / -1750 -570 / -570
Physical Exam
Physical Exam
GEN: NAD. AAOx3
HEENT: MMM
LUNGS: Wearing oxygen at 2 L NC. No audible wheeze
CV: Afib on tele
ABD: ND
EXT: No edema B/L. +PT pulses B/L
NEURO: Gross non-focal
SKIN: No rash
[2024-02-08] MEDS: ELIQUIS 2.5 MG PO ×2 (10:01→20:02)
[2024-02-08] MEDS: LOW STRENGTH ASPIRIN 81 MG PO (10:02)
[2024-02-08] MEDS: TOPROL XL 25 MG PO ×2 (10:02→10:03)
[2024-02-08] MEDS: ZOLOFT 25 MG PO (10:02)
[2024-02-08] MEDS: LASIX 40 MG IV ×2 (10:03→17:48)
[2024-02-08] MEDS: COZAAR 100 MG PO (10:03)
[2024-02-08] MEDS: VIBRAMYCIN 100 MG PO ×2 (10:03→20:02)
--- NOTE | 2024-02-08 12:28 | CM ---
Patient with Dx HF, Avascular L groin lesion. O2 2L. Receiving IV Lasix. PT & OT Evals pending.
CM Consult: Check cost Eliquis 2.5mg BID
Eliquis cost $47 through [facility] and $94 through [facility].
Met with patient and son Marc; both agree with cost. Issued Free Month Eliquis card.
Shanda GOLD and Dr Rodriguez aware.
Patient reports she feels wobbly when she got OOB to chair today. She had been participating with outpatient PT prior to admission.
Message to Dr Rodriguez requesting therapy evals.
Son Marc Bowling, who lives in [facility] is here visiting for a few days (cell [phone]); there are 4 children and all live out of state. Another child may be coming to be with hospital in a few days. Suggested that patient may benefit from
a family member staying with her for a few days at discharge.
Plan follow up after seen by PT/OT.
--- NOTE | 2024-02-08 12:40 | CM ---
Patient with Dx HF, Avascular L groin lesion. O2 2L. Receiving IV Lasix. PT & OT Evals pending.
CM Consult: Check cost Eliquis 2.5mg BID
Eliquis cost $47 through [facility] and $94 through [facility].
Met with patient and son Marc; both agree with cost. Issued Free Month Eliquis card.
Shanda GOLD and Dr Rodriguez aware.
Patient reports she feels wobbly when she got OOB to chair today. She had been participating with outpatient PT prior to admission.
Message to Dr Rodriguez requesting therapy evals.
Son Marc Bowling, who lives in [facility] is here visiting for a few days (cell [phone]); there are 4 children and all live out of state. Another child may be coming to be with the patient, while she is here in the hospital, in a few days.
Suggested that patient may benefit from a family member staying with her for a few days at discharge.
Plan watch for home O2 needs.
Plan follow up after seen by PT/OT.
--- NOTE | 2024-02-08 13:05 | CON.ONC ---
Impression
Impression
right groin ovoid mass
afib
heart failure
Plan
Plan
1. Right groin ovoid mass - visualized on US and CT - of unclear etiology bursal collection vs. hematoma vs. other - possible neoplasm
-discussed recent US and and CT imaging w/ radiology who is recommending MRI right hip for better assessment of findings
-will await MRI evaluation prior to further w/u
Will continue to follow along with you.
Patient History
History of Present Illness
78y/o female seen in oncology consultation today regarding ovoid lesion in right pelvis/hip region.
The patient is admitted for heart failure as well as afib, w/LE edema and transaminitis, prompting LE US revealing no DVT, ad an ovoid heterogeneous echogenic lesion within the right groin, measuring 7.5 x 3.1 x 2.9 cm, without internal vascularity.
This may represent a hematoma w/ CT imaging recommended. CT of the abdomen and pelvis revealed a mass in the right groin, lateral to the common femoral vessels. Somewhat limited evaluation because of streak artifact from bilateral hip prostheses,
corresponding to the mass seen on recent ultrasound, possibly a complex bursal collection or old hematoma, though, neoplasia is not entirely excluded. A 2.9 cm hemangioma within the right lobe of the liver was appreciated.
The patient notes a recent fall on her hip. She denies pain in that region. No abdominal or pelvic pain. No SOB at rest or chest pain.
Past-Medical/Surgical History
PMH:
HTN
CHF
Hypercholesterolemia
History of diverticulitis
h/o orthostasis
h/o recurrent hyponatremia in the setting of HCTZ use
PSH:
right hip replacement
appendectomy
removal right ovarian cyst - 2010
SH:
Tobacco: Former Smoker
Alcohol: Occasional (monthly or less)
FH: non-contributory
Allergies: celebrex, tramadol
Patient Medication
�Medication �Instructions �Recorded �Confirmed �Last Taken �Type
atenolol 25 mg tablet 25 mg PO DAILY Blood pressure 08/21/22 02/06/24 09/19/23 History
rosuvastatin 40 mg tablet 40 mg PO QPM High cholesterol 08/21/22 02/06/24 09/18/23 History
therapeutic multivitamin 1 tab PO DAILY Supplement 08/21/22 02/06/24 09/18/23 History
acetaminophen 650 mg 650 mg PO HSPRN PRN sleep 09/19/23 02/06/24 09/18/23 History
tablet,extended release
losartan 50 mg-hydrochlorothiazide 1 tab PO DAILY Blood Pressure 02/06/24 02/06/24 Unknown History
12.5 mg tablet
magnesium glycinate 118 mg PO DAILY Electrolyte 02/06/24 02/06/24 Unknown History
Repletion
sertraline 25 mg tablet 25 mg PO HS Mental Health/Anxiety 02/06/24 02/06/24 Unknown History
apixaban 2.5 mg tablet (Eliquis) 2.5 mg PO BID Blood clot 02/08/24 Unknown Rx
prevention/tx #60 tabs
Active Medications
Generic Name Dose Route Start Last Admin
Trade Name Freq PRN Reason Stop Dose Admin
Albuterol Sulfate 2.5 mg 02/06/24 08:59 02/07/24 07:14
Albuterol Nebs 2.5 Mg/3 Ml Ampul INH 2.5 mg
R Q4HPRN PRN Administration
SOB, wheezing
Protocol
Apixaban 2.5 mg 02/07/24 11:30 02/08/24 10:01
Apixaban (Eliquis) 2.5 Mg Tablet PO 03/06/24 11:29 2.5 mg
BID YULY Administration
Aspirin 81 mg 02/07/24 08:00 02/08/24 10:02
Aspirin 81 Mg Chewable Tablet PO 03/06/24 07:59 81 mg
DAILY YULY Administration
Budesonide/Formoterol Fumarate 2 puff 02/06/24 09:00 02/08/24 07:44
Symbicort Inhaler 160/4.5 INH 03/05/24 08:59 2 puff
R BID YULY Administration
Protocol
Doxycycline Hyclate 100 mg 02/06/24 08:00 02/08/24 10:03
Doxycycline 100 Mg Capsule PO 100 mg
Q12 YULY Administration
Furosemide 40 mg 02/06/24 09:00 02/08/24 10:03
Furosemide 40 Mg (10 Mg/Ml) 4 Ml Vial IV 03/05/24 08:59 40 mg
BID AT 0800,1600 YULY Administration
Hydralazine HCl 10 mg 02/06/24 10:05
Hydralazine 20 Mg/Ml Vial IV 03/05/24 10:04
Q4HPRN PRN
SBP greater than 200
Losartan Potassium 100 mg 02/06/24 11:00 02/08/24 10:03
Losartan 100 Mg Tablet PO 03/05/24 10:59 100 mg
DAILY YULY Administration
Metoprolol Succinate 25 mg 02/07/24 20:00 02/08/24 10:03
Metoprolol 25 Mg Extended Release Tablet PO 02/08/24 19:59 25 mg
BID YULY Administration
Metoprolol Succinate 50 mg 02/08/24 20:00
Metoprolol 50 Mg Extended Release Tablet PO 03/07/24 19:59
BID YULY
Rosuvastatin Calcium 40 mg 02/06/24 18:00 02/07/24 17:56
Rosuvastatin (Crestor) 40 Mg Tablet PO 03/05/24 17:59 40 mg
QPM YULY Administration
Sertraline HCl 25 mg 02/08/24 09:00 02/08/24 10:02
Sertraline 25 Mg Tablet PO 03/07/24 08:59 25 mg
DAILY YULY Administration
Sodium Chloride 0 flush 02/06/24 02:00
Sodium Chloride 0.9% (Flush) Syringe IV 03/05/24 01:59
PER PROTOCOL YULY
Review of Systems
-
A full ROS was performed w/ pertinent findings as per HPI.
Physical Exam
-
General: Well Developed and No Apparent Distress
HEENT: Negative Jaundice
Cardiology: Normal Sinus Rhythm
Pulmonary: Clear
GI: Soft
Extremities: No C/C/E
Labs
Lab Results
WBC 14.6 10^3/uL (4.8-10.8) H 02/07/24 04:10
RBC 4.51 10^6/uL (4.20-5.40) 02/07/24 04:10
Hgb 12.9 g/dL (12.0-16.0) 02/07/24 04:10
Hct 37.6 % (37.0-47.0) 02/07/24 04:10
MCV 83.4 fL (81.0-99.0) 02/07/24 04:10
MCH 28.6 pg (27.0-31.0) 02/07/24 04:10
MCHC 34.3 g/dL (33.0-37.0) 02/07/24 04:10
RDW 13.2 % (11.5-14.5) 02/07/24 04:10
Plt Count 190 10^3/uL (130-400) D 02/07/24 04:10
MPV 12.1 fL (7.4-10.4) H 02/07/24 04:10
Abs Immat Gran (auto) 0.1 10^3/uL (0-0.05) H 02/07/24 04:10
Absolute Neuts (auto) 10.8 10^3/uL (1.4-6.5) H 02/07/24 04:10
Absolute Lymphs (auto) 2.4 10^3/uL (1.2-3.4) 02/07/24 04:10
Absolute Monos (auto) 1.3 10^3/uL (0.1-0.6) H 02/07/24 04:10
Absolute Eos (auto) 0.1 10^3/uL (0-0.7) 02/07/24 04:10
Absolute Basos (auto) 0.0 10^3/uL (0-0.2) 02/07/24 04:10
Immature Gran % 0.4 % (0-0.5) 02/07/24 04:10
Neutrophils % 74.0 % (42.2-75.2) 02/07/24 04:10
Lymphocytes % 16.3 % (20.5-51.1) L 02/07/24 04:10
Monocytes % 8.8 % (1.7-9.3) 02/07/24 04:10
Eosinophils % 0.3 % (0-6) 02/07/24 04:10
Basophils % 0.2 % (0-2) 02/07/24 04:10
Creatinine 0.8 mg/dL (0.6-1.0) 02/07/24 04:10
Vital Signs
Vital Signs
Temp Pulse Resp BP Pulse Ox
97.9 F 84 14 114/58 94
02/08/24 07:35 02/08/24 07:49 02/08/24 07:49 02/08/24 06:00 02/08/24 07:49
[2024-02-08 15:41] LABS: % Basophils 0.3 % (0-2); % Eosinophils 0.6 % (0-6); % Immature Granulocytes 0.4 % (0-0.5); % Lymphocytes 10.3 % (20.5-51.1); % Neutrophils 78.4 % (42.2-75.2); Absolute Basophils 0.1 10^3/uL (0-0.2); Absolute Eosinophils 0.1 10^3/uL (0-0.7); Absolute Immature Granulocytes 0.1 10^3/uL (0-0.05); Absolute Lymphocytes 1.7 10^3/uL (1.2-3.4); Absolute Monocytes 1.6 10^3/uL (0.1-0.6); Absolute Neutrophils 12.7 10^3/uL (1.4-6.5); Hematocrit 42.9 % (37.0-47.0); Hemoglobin 14.8 g/dL (12.0-16.0); Mean Corp Hgb Conc. 34.5 g/dL (33.0-37.0); Mean Corpuscular Hgb 28.4 pg (27.0-31.0); Mean Corpuscular Volume 82.2 fL (81.0-99.0); Mean Platelet Volume 11.8 fL (7.4-10.4); Nucleated Red Blood Cells % 0 %; Platelet Count 236 10^3/uL (130-400); Red Blood Cell Count 5.22 10^6/uL (4.20-5.40); Red Cell Dist. Width 13.3 % (11.5-14.5); White Blood Cell Count 16.2 10^3/uL (4.8-10.8)
[2024-02-08 15:52] LABS: ALT (SGPT) 44 U/L (0-35); AST (SGOT) 38 U/L (14-36); Alkaline Phosphatase 76 U/L (38-126); Blood Urea Nitrogen 20 mg/dl (7-17); Calcium 9.4 mg/dl (8.4-10.2); Carbon Dioxide 36 mmol/L (22-30); Chloride 90 mmol/L (98-107); Estimated Creatinine Clearance 44 ml/min; Glucose 128 mg/dl (70-99); Potassium 4.1 mmol/L (3.5-5.1); Sodium 134 mmol/L (135-145); Total Bilirubin 2.1 mg/dl (0.2-1.3); Total Protein 6.2 g/dl (6.3-8.2); eGFR > 60.00
[2024-02-08] MEDS: CRESTOR 40 MG PO (17:48)
--- NOTE | 2024-02-08 19:34 | PTCARENOTE ---
day shift note. see nursing assessment. pt in afib on monitor. cardizem drip stopped this am per order. this afternoon pts heart rate 100 to 130s. cardiology made aware. no new orders at this time.
[2024-02-08] MEDS: TOPROL XL 50 MG PO (20:02)
--- NOTE | 2024-02-08 20:34 | PTCARENOTE ---
Pt in Afib on the monitor. Pt HR sustaining 115-130s, pt asymptomatic. 1999 medications given (see MAR). SHERYL Taylor notified, no new orders.
[2024-02-08] MEDS: SYMBICORT 160/4.5 MCG INHALER INH (20:53)
[2024-02-09] VITALS (24 sets, daily range): BP systolic 76–150; BP diastolic 46–99; PULSE 106; O2SAT 96; BMI 22.4
[2024-02-09 03:08] LABS: Haptoglobin 133 mg/dL (30-200)
[2024-02-09 04:35] LABS: % Basophils 0.4 % (0-2); % Eosinophils 1.2 % (0-6); % Immature Granulocytes 0.4 % (0-0.5); % Lymphocytes 19.1 % (20.5-51.1); % Neutrophils 67.9 % (42.2-75.2); Absolute Basophils 0.1 10^3/uL (0-0.2); Absolute Eosinophils 0.2 10^3/uL (0-0.7); Absolute Immature Granulocytes 0.1 10^3/uL (0-0.05); Absolute Lymphocytes 2.7 10^3/uL (1.2-3.4); Absolute Monocytes 1.5 10^3/uL (0.1-0.6); Absolute Neutrophils 9.5 10^3/uL (1.4-6.5); Hematocrit 43.9 % (37.0-47.0); Mean Corp Hgb Conc. 34.2 g/dL (33.0-37.0); Mean Corpuscular Volume 84.9 fL (81.0-99.0); Mean Platelet Volume 11.5 fL (7.4-10.4); Nucleated Red Blood Cells % 0 %; Platelet Count 196 10^3/uL (130-400); Red Blood Cell Count 5.17 10^6/uL (4.20-5.40)
[2024-02-09 04:57] LABS: ALT (SGPT) 40 U/L (0-35); AST (SGOT) 32 U/L (14-36); Albumin 3.7 g/dl (3.5-5.0); Alkaline Phosphatase 81 U/L (38-126); Blood Urea Nitrogen 23 mg/dl (7-17); Calcium 9.6 mg/dl (8.4-10.2); Carbon Dioxide 34 mmol/L (22-30); Chloride 90 mmol/L (98-107); Estimated Creatinine Clearance 44 ml/min; Glucose 121 mg/dl (70-99); Potassium 3.8 mmol/L (3.5-5.1); Sodium 134 mmol/L (135-145); Total Bilirubin 2.3 mg/dl (0.2-1.3); Total Protein 5.9 g/dl (6.3-8.2); eGFR > 60.00
[2024-02-09] MEDS: SYMBICORT 160/4.5 MCG INHALER 2 PUFF INH ×2 (08:14→20:55)
[2024-02-09] MEDS: ELIQUIS 2.5 MG PO ×2 (08:23→21:39)
[2024-02-09] MEDS: TOPROL XL 50 MG PO ×2 (08:23→21:39)
[2024-02-09] MEDS: ZOLOFT 25 MG PO (08:23)
[2024-02-09] MEDS: COZAAR 100 MG PO (08:23)
[2024-02-09] MEDS: LOW STRENGTH ASPIRIN 81 MG PO (08:23)
[2024-02-09] MEDS: LASIX 40 MG IV ×2 (08:24→17:04)
[2024-02-09] MEDS: VIBRAMYCIN 100 MG PO ×2 (08:24→21:39)
--- NOTE | 2024-02-09 08:58 | W.PN.ONC2 ---
Today's Communication / Plan
-
f/u MRI, if evident mass then would pursue IR bx
Impression
Impression
right groin ovoid mass
afib
heart failure
Plan
Plan
1. Right groin ovoid mass - visualized on US and CT - of unclear etiology bursal collection vs. hematoma vs. other - possible neoplasm
-will await MRI evaluation prior to further w/u
Will continue to follow along with you.
Subjective/Objective
Chief Complaint
afebrile, 2L NC
improving leukocytosis/neutrophilia
denies pain
Subjective
no new complaints
sitting in chair
son at bedside provided updates per pt request
Vital Signs:
Vital Signs
Temp Pulse Resp BP Pulse Ox
97.8 F 114 14 150/71 96
02/09/24 04:24 02/09/24 08:23 02/09/24 08:21 02/09/24 08:23 02/09/24 08:21
Lab Results:
Laboratory Data
WBC 14.0 10^3/uL (4.8-10.8) H 02/09/24 04:00
Hgb 15.0 g/dL (12.0-16.0) 02/09/24 04:00
Plt Count 196 10^3/uL (130-400) 02/09/24 04:00
eGFR > 60.00 02/09/24 04:00
Physical Exam
HEENT: Moist Mucous Membranes; No Jaundice
Cardiology: Irregular rate/rhythm
Pulmonary: Clear
GI: Soft
Extremities: Pulses Present; No Edema
Neuro: Non Focal
Review of Systems
Review of Systems
Review of systems notable for subjective, otherwise negative
[2024-02-09 09:09] LABS: Direct Bilirubin 0.3 mg/dl (0.0-0.4); LDH 222 U/L (120-246)
[2024-02-09] MEDS: XANAX 0.5 MG PO (09:13)
--- NOTE | 2024-02-09 09:28 | W.PN.CARDCBS ---
Addendum entered and electronically signed by Mary Ferris DO 02/09/24 15:27:
I saw and examined the patient.
The Medical Field Representative's note was reviewed and I agree with the note.
Comment: Patient seen and examined. Overall feels better although still short of breath, requiring nasal cannula O2 which is new. No cough or wheezing. No chest pain or pressure. No dizziness.
GEN: NAD. AAOx3
HEENT: MMM
LUNGS: Bronchovesicular breath sounds, no wheezes.
CV: Irregularly irregular. Positive S1-S2. 2/6 SM
ABD: soft, +BS
EXT: No edema B/L.
NEURO: Gross non-focal
Plan:
Newly diagnosed atrial fibrillation with RVR
-Continue rate control strategy with plan for HUA/cardioversion 02/10/2024
-New Eliquis 2.5 mg BID (age 78, wt 56.3 kg, Cre 0.8) 02/07/24 as well. Appreciate help of CM on checking cost, patient and her son agreeable to cost.
-Outpatient dose of atenolol changed to Toprol XL this admission. Increase dose of Toprol XL to 50 mg BID on 02/08/24.
Hypoxic respiratory failure with ongoing O2 requirements
-Remains hypoxic on 2 L NC. Patient was not using oxygen prior to admission.
-CT abd/pelvis 02/07/24 showed ongoing small B/L pleural effusions and vascular congestion.
-Weight is down another 2 lbs on 02/09/24 and no edema B/L.
-Repeat chest x-ray
-Continue IV Lasix 40 mg IV twice daily; was not taking a diuretic prior to this admission
-Elevated troponin without chest pain
- nonischemic myocardial injury Troponin elevation.
-Plan for outpatient ischemic evaluation
-Continue medical therapy
Original Note:
Today's Communication / Plan
-
Check CXR
HUA/CV in AM
54 minutes in face to fcae, chart prep, arranging for testing and procedures
Impression / Plan
-
PCP: Dr. Klein
Cardiology: Dr. Kamara
Impression:
Acute hypoxic respiratory insufficiency
Acute HFpEF
Newly diagnosed paroxysmal Afib with RVR 02/07/24
HTN emergency
Preserved EF 65-70% by echo 09/20/23
h/o post-op acute HF following CARMEN in 2014
History of right breast cancer 1999
Hypertension
Hypercholesterolemia
History of diverticulitis
h/o orthostasis
h/o recurrent hyponatremia in the setting of HCTZ use
Nonischemic myocardial injury
Echo 03/2015: Normal LV, EF 55-60%, normal RV, normal atria, normal mitral and aortic valve mild tricuspid regurgitation, pulmonary artery pressure 45-50 mmHg
Echo 09/20/23: EF 65-70%, mild MR, mild to mod TR with PAP 55-60 mmHg
Echo 02/06/24: Ejection fraction 55 to 60%, mild concentric LVH, stage II diastolic dysfunction, mild MR, no AAS/AI, mild to moderate TR with PAP 40 to 45 mmHg no significant change compared to echo from 09/20/23
Plan:
-Weaned Cardizem gtt 02/08/24. Remains in Afib 02/09/24. Reviewed with patient again the plan for HUA/CV 02/10/24. Will plan on a HUA/CV due to asymptomatic with Afib.
-Patient with new Afib this admission starting 02/07/24 and new to Eliquis 2.5 mg BID (age 78, wt 56.3 kg, Cre 0.8) 02/07/24 as well. Appreciate help of CM on checking cost, patient and her son agreeable to cost.
-Outpatient dose of atenolol changed to Toprol XL this admission. Increase dose of Toprol XL to 50 mg BID on 02/08/24.
-Patient was briefly placed on DAPT on admission due to elevated Troponin. Elevated Troponin being managed as a nonischemic myocardial injury Troponin elevation. Plavix stopped 02/07/24.
-Remains hypoxic on 2 L NC. Patient was not using oxygen prior to admission. CT abd/pelvis 02/07/24 showed ongoing small B/L pleural effusions and vascular congestion. Weight is down another 2 lbs on 02/09/24 and no edema B/L. Patient also reports new
cough. Afebrile. Will check CXR 02/09/24, ordered by me.
-Patient weighed 131 lbs on home scale day of admission 02/06/24 and is down to 122 lbs on standing scale 02/09/24. Lasix 40 mg IV BID. Patient was not taking a diuretic prior to admission.
HPI: Patient [facility] very early this morning with a sense apprehension and SOB and was admitted with acute HF with a consultation to cardiology. Patient was admitted to 09/19/23 until 09/22/23 with acute HFpEF. Patient was diuresed that
admission and discharged to home on Lasix 20 mg PO daily. Patient was seen in the office within 2 weeks of discharge and appeared to be doing well, in fact her weight was down another 5 lbs and so her Lasix was cut to 20 mg MWF with a plan to
continue daily weights. Patient says that she stopped weighing herself daily in the last couple of months and also stopped checking her BP at home. She started with a sense of anxiety and apprehension in the last few days and then started with a dry
cough. She was more SOB going to be last night and awoke gasping for breath late last night and called 911. Paramedics found the patient in respiratory distress and 100% NRB was started and then switched to BiPAP in the ER. Nitro gtt started and
then stopped due to hypotension. Her usual dose of atenolol was restarted this AM. Her outpatient dose of losartan 50 mg daily has not been restarted yet.
Progress Note - Screen Door Maker
Subjective
Date of Service: February 09, 2024
Objective
Labs:
02/09/24 04:00
02/09/24 04:00
Labs
Hgb 15.0 g/dL (12.0-16.0) 02/09/24 04:00
Hct 43.9 % (37.0-47.0) 02/09/24 04:00
Plt Count 196 10^3/uL (130-400) 02/09/24 04:00
Sodium 134 mmol/L (135-145) L 02/09/24 04:00
Potassium 3.8 mmol/L (3.5-5.1) 02/09/24 04:00
BUN 23 mg/dl (7-17) H 02/09/24 04:00
Creatinine 0.8 mg/dL (0.6-1.0) 02/09/24 04:00
Glucose 121 mg/dl (70-99) H 02/09/24 04:00
Troponins
02/06/24 02/06/24 02/07/24
13:00 19:09 04:10
Troponin I 0.216 H* 0.179 H* 0.112 H*
Vital Signs and I&O:
Vital Signs
Temp Pulse Resp BP Pulse Ox
97.8 F 114 14 150/71 96
02/09/24 04:24 02/09/24 08:23 02/09/24 08:21 02/09/24 08:23 02/09/24 08:21
Vital Signs
Temp Pulse Resp BP Pulse Ox
97.8 F 114 14 150/71 96
02/09/24 04:24 02/09/24 08:23 02/09/24 08:21 02/09/24 08:23 02/09/24 08:21
Intake & Output
02/07/24 02/08/24 02/09/24 02/10/24
06:59 06:59 06:59 06:59
Intake Total 500 / 500 750 / 750 1130 / 1130
Output Total 2250 / 2250 1320 / 1320 1050 / 1050
Balance -1750 / -1750 -570 / -570 80 / 80
Physical Exam
Physical Exam
GEN: NAD. AAOx3
HEENT: MMM
LUNGS: Wearing oxygen at 2 L NC. No audible wheeze
CV: Afib on tele
ABD: ND
EXT: No edema B/L. +PT pulses B/L
NEURO: Gross non-focal
SKIN: No rash
--- NOTE | 2024-02-09 11:57 | W.PN.HOSP.TC ---
Today's Communication/Plan
-
for CV
Assessment / Plan
Assessment / Plan
78yo F, former smoker with PMHX of HTN, HFpEF, HLD came with 2 days of SOB describes as inability to take deep breath and chest restriction. Had similar feeling on last admission, when was managed for CHF. FOund HTN emergency, elevated troponin and
leukocytosis with possible bronchitis. Due to persistent symptomatic Afib planned for HUA/CV
A/P:
#Acute hypoxic insufficiency 2/2 HFpEF acute on chronic exacerbation
#HTN emergency with pulmonary effusions
Lasix, follol electrolytes, daily weight, echo
Nitro dtip PRN
Wean off O2
#Elevated troponin, NSTEMI ruled out, non-ischemic cardiac injury
#ASCVD
#New onset Afib
Lovenox therapeutic switch to Eliquis
ASA, cont statin and BB
TSH WNL
LDL WNL
Cardio consult: HUA CV planned
Serial Troponin, EKG
Telemetry
Echo: preserved EF, grade 2 diastolic dysfunction, no clinically significant valvular disease, no wall motion abnormalities
#Elevated Ddimer
most likely acute phase reactant
No PE on CT chest
US LE neg for DVT
#L ileopsoas bursitis
Outpatient mgmt with PCP
COld compress and NSAIDs if symptomatic
#Leukocytosis 2/2 Acute bronchitis
#Emphysema
Bronchodilators
COVID-19 neg
influenza, RSV neg
procalcitonin low - stop ceftriaxone. can cont Doxy for possible subtile bronchitis, since leukocytosis
#Transaminitis with indirect bilirubinemia - recurrent at least since 2018
no abd pain
US RUQ with small hemangioma and small gall bladder polyp - outpatient monitoring advised
follow LFT
Check hepatitis panel
LDH mildly elevated most likely 2/2 acute disease. check Haptoglobin, but no anemia
#Hx of b/l CARMEN
#Hepatic hemangioma 2.9cm unchanged since 2014
#b/l renal cysts
No additional mgmt advised
#Diverticulosis
#DJD
follow with PCP
High fiber diet
#HLD
#OA
#Hx of breast CA
cont home meds
DVT ppx on therapeutic lovenox
DNR/DNI
I have spent at least 56min reviewing chart, test results, communication with consultants and direct patient care
Anticipated Discharge: 24 - 48 hours
Subjective/Interval History
-
Date of Service: February 09, 2024
Objective Data
-
Labs:
Laboratory Results
02/09/24
04:00
WBC 14.0 H
Hgb 15.0
Hct 43.9
Plt Count 196
Sodium 134 L
Potassium 3.8
Chloride 90 L
Carbon Dioxide 34 H
BUN 23 H
Creatinine 0.8
Glucose 121 H
Calcium 9.6
Total Bilirubin 2.3 H
AST 32
ALT 40 H
Alkaline Phosphatase 81
Vital Signs:
Vital Signs
Temp Pulse Resp BP Pulse Ox
97.9 F 113 27 91/52 96
02/09/24 07:25 02/09/24 11:13 02/09/24 11:13 02/09/24 11:06 02/09/24 08:21
I&O
02/08/24 02/09/24 02/10/24
06:59 06:59 06:59
Intake Total 750 / 750 1130 / 1130
Output Total 1320 / 1320 1050 / 1050
Balance -570 / -570 80 / 80
Review of Systems
-
History Source: Patient
All other systems: Reviewed and negative
Physical Exam
-
General: Well Developed and Well Nourished
Respiratory: Clear to Auscultation
Cardiac: Irregular Rhythm
GI: Soft, Nontender and Nondistended
Genito-urinary: No Costovertebral Tender
Musculoskeletal: No Clubbing, No Cyanosis and No Edema
Skin: Warm
Neuro: Awake, Alert, Oriented and AO x 3
Psych: Calm
[2024-02-09] MEDS: CRESTOR 40 MG PO (17:04)
--- NOTE | 2024-02-09 17:09 | CM ---
Patient with Dx HF, Avascular L groin lesion. O2 1L. Receiving IV Lasix. PT & OT recommend HH.
Met with patient who was sleeping. Spoke with son Marc and grandson outside of room. Son agrees to HH referral to [facility] for SN/PT/OT.
Referral placed for [facility] VN.
Plan follow up with PT if they are recommending RW at d/c - obtain script for RW.
Plan watch for home O2 needs.
Plan home with [facility], possibly RW.
[2024-02-10] VITALS (25 sets, daily range): BP systolic 87–161; BP diastolic 47–96; BMI 22.7
[2024-02-10 06:07] LABS: % Basophils 0.6 % (0-2); % Eosinophils 1.7 % (0-6); % Immature Granulocytes 0.5 % (0-0.5); % Lymphocytes 18.7 % (20.5-51.1); % Monocytes 9.1 % (1.7-9.3); % Neutrophils 69.4 % (42.2-75.2); Absolute Basophils 0.1 10^3/uL (0-0.2); Absolute Eosinophils 0.2 10^3/uL (0-0.7); Absolute Immature Granulocytes 0.1 10^3/uL (0-0.05); Absolute Lymphocytes 2.7 10^3/uL (1.2-3.4); Absolute Monocytes 1.3 10^3/uL (0.1-0.6); Hematocrit 44.8 % (37.0-47.0); Hemoglobin 15.3 g/dL (12.0-16.0); Mean Corp Hgb Conc. 34.2 g/dL (33.0-37.0); Mean Corpuscular Volume 84.8 fL (81.0-99.0); Mean Platelet Volume 11.9 fL (7.4-10.4); Nucleated Red Blood Cells % 0 %; Platelet Count 204 10^3/uL (130-400); Red Blood Cell Count 5.28 10^6/uL (4.20-5.40); Red Cell Dist. Width 13.1 % (11.5-14.5); White Blood Cell Count 14.4 10^3/uL (4.8-10.8)
[2024-02-10 06:26] LABS: ALT (SGPT) 46 U/L (0-35); AST (SGOT) 40 U/L (14-36); Albumin 3.6 g/dl (3.5-5.0); Alkaline Phosphatase 71 U/L (38-126); Blood Urea Nitrogen 38 mg/dl (7-17); Calcium 9.5 mg/dl (8.4-10.2); Carbon Dioxide 36 mmol/L (22-30); Chloride 88 mmol/L (98-107); Estimated Creatinine Clearance 39 ml/min; Glucose 122 mg/dl (70-99); Magnesium 1.8 mg/dl (1.6-2.3); Potassium 4.1 mmol/L (3.5-5.1); Sodium 133 mmol/L (135-145); Total Bilirubin 1.9 mg/dl (0.2-1.3); Total Protein 5.9 g/dl (6.3-8.2); eGFR > 60.00
--- NOTE | 2024-02-10 07:30 | PTCARENOTE ---
shiftman Rn provided verbal report to geotechnical laboratory technician RN, Pt transported to cathode washer and accompanied by cathode washer RN
[2024-02-10] MEDS: SYMBICORT 160/4.5 MCG INHALER 2 PUFF INH ×2 (07:40→20:04)
[2024-02-10] MEDS: ELIQUIS 2.5 MG PO ×2 (07:40→20:41)
--- NOTE | 2024-02-10 09:28 | PTCARENOTE ---
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
--- NOTE | 2024-02-10 09:51 | PTCARENOTE ---
Addendum entered by Brianna Cui RN 02/10/24 19:17:
occasional PACs
Original Note:
Patient returned to room in NSR with occasional Oacs rate is 74 pulse ox 92% on 1L nc
--- NOTE | 2024-02-10 10:23 | W.PN.CARDCBS ---
Addendum entered and electronically signed by Mary Ferris DO 02/10/24 10:32:
Other pertinent labs this admission: Total cholesterol 100, LDL 35, HDL 52, triglycerides 69. TSH 0.75. AST/ALT 40/46. Alkaline phosphatase 71. Total bilirubin initially 2.2. Hemoglobin A1c 5.8%. Cardiac troponin: Initial 0.035, peak 0.216.
Original Note:
Today's Communication / Plan
-
Successful cardioversion proceeded by HUA to exclude thrombus with conversion from atrial fibrillation to sinus rhythm
Continue IV Lasix another 24 hours but reduce to once daily
Wean O2 as able
Discharge planning
Impression / Plan
-
PCP: Dr. Klein
Cardiology: Dr. Kamara
Impression:
Acute hypoxic respiratory insufficiency
Acute HFpEF
Newly diagnosed paroxysmal Afib with RVR 02/07/24
HTN emergency
Preserved EF 65-70% by echo 09/20/23
h/o post-op acute HF following CARMEN in 2014
History of right breast cancer 1999
Hypertension
Hypercholesterolemia
History of diverticulitis
h/o orthostasis
h/o recurrent hyponatremia in the setting of HCTZ use
Nonischemic myocardial injury
Echo 03/2015: Normal LV, EF 55-60%, normal RV, normal atria, normal mitral and aortic valve mild tricuspid regurgitation, pulmonary artery pressure 45-50 mmHg
Echo 09/20/23: EF 65-70%, mild MR, mild to mod TR with PAP 55-60 mmHg
Echo 02/06/24: Ejection fraction 55 to 60%, mild concentric LVH, stage II diastolic dysfunction, mild MR, no AAS/AI, mild to moderate TR with PAP 40 to 45 mmHg no significant change compared to echo from 09/20/23
Plan:
Newly diagnosed atrial fibrillation with RVR
-Transesophageal echocardiogram without left atrial appendage thrombus.
-DC cardioversion successful with attempts at 200 J x1 followed by 250 J x1
-No immediate postprocedural complications. Post procedure EKG sinus rhythm with PACs with moderate LVH and nonspecific T wave abnormality. Heart rates 68 bpm
-Continue uninterrupted Eliquis 2.5 mg BID (age 78, wt 56.3 kg, Cre 0.8) started 02/07/2024
-Outpatient dose of atenolol changed to Toprol XL to 50 mg BID on 02/08/24.
Hypoxic respiratory failure with ongoing O2 requirements
-Remains hypoxic on 1 L NC. Patient was not using oxygen prior to admission.
-CT abd/pelvis 02/07/24 showed ongoing small B/L pleural effusions and vascular congestion.
-Repeat chest x-ray yesterday showed interval improvement in pulmonary edema now only mild. Trace bilateral pleural effusion
-Continue IV Lasix another 24 hours but reduce to once daily; anticipate transition to oral Lasix tomorrow. Patient was not previously on loop diuretic but anticipate discharging on Lasix 40 mg daily and stopping hydrochlorothiazide
History of hypertension with lower blood pressure trends
-Will reduce losartan to 75 mg daily
-Monitor blood pressure trends following cardioversion
-Elevated troponin without chest pain
- nonischemic myocardial injury Troponin elevation.
-Plan for outpatient ischemic evaluation
-Continue medical therapy
Discharge planning per primary; anticipate in the next 24-48 hours
HPI: Patient came to [facility] very early this morning with a sense apprehension and SOB and was admitted with acute HF with a consultation to cardiology. Patient was admitted to 09/19/23 until 09/22/23 with acute HFpEF. Patient was diuresed that
admission and discharged to home on Lasix 20 mg PO daily. Patient was seen in the office within 2 weeks of discharge and appeared to be doing well, in fact her weight was down another 5 lbs and so her Lasix was cut to 20 mg MWF with a plan to
continue daily weights. Patient says that she stopped weighing herself daily in the last couple of months and also stopped checking her BP at home. She started with a sense of anxiety and apprehension in the last few days and then started with a dry
cough. She was more SOB going to be last night and awoke gasping for breath late last night and called 911. Paramedics found the patient in respiratory distress and 100% NRB was started and then switched to BiPAP in the ER. Nitro gtt started and
then stopped due to hypotension. Her usual dose of atenolol was restarted this AM. Her outpatient dose of losartan 50 mg daily has not been restarted yet.
Progress Note - Research Analyst
Subjective
Date of Service: February 10, 2024
Patient seen and examined prior to HUA/cardioversion. Offers no complaints and reports improved shortness of breath. No chest pain.
Objective
Labs:
02/10/24 05:45
02/10/24 05:45
Labs
Hgb 15.3 g/dL (12.0-16.0) 02/10/24 05:45
Hct 44.8 % (37.0-47.0) 02/10/24 05:45
Plt Count 204 10^3/uL (130-400) 02/10/24 05:45
Sodium 133 mmol/L (135-145) L 02/10/24 05:45
Potassium 4.1 mmol/L (3.5-5.1) 02/10/24 05:45
BUN 38 mg/dl (7-17) H 02/10/24 05:45
Creatinine 0.9 mg/dL (0.6-1.0) 02/10/24 05:45
Glucose 122 mg/dl (70-99) H 02/10/24 05:45
Vital Signs and I&O:
Vital Signs
Temp Pulse Resp BP Pulse Ox
97.6 F 82 18 117/63 95
02/10/24 03:03 02/10/24 09:48 02/10/24 09:48 02/10/24 09:48 02/10/24 07:44
Vital Signs
Temp Pulse Resp BP Pulse Ox
97.6 F 82 18 117/63 95
02/10/24 03:03 02/10/24 09:48 02/10/24 09:48 02/10/24 09:48 02/10/24 07:44
Intake & Output
02/08/24 02/09/24 02/10/24 02/11/24
06:59 06:59 06:59 06:59
Intake Total 750 / 750 1130 / 1130
Output Total 1320 / 1320 1050 / 1050 300 / 300
Balance -570 / -570 80 / 80 -300 / -300
Physical Exam
Physical Exam
GEN: NAD. AAOx3
HEENT: MMM
LUNGS: Bronchovesicular breath sounds, no wheezes.
CV: Irregularly irregular. Positive S1-S2. 2/6 SM
ABD: soft, +BS
EXT: No edema B/L.
NEURO: Gross non-focal
--- NOTE | 2024-02-10 10:34 | W.PN.HOSP.TC ---
Today's Communication/Plan
-
monitor and wean off O2
PT/OT
Assessment / Plan
Assessment / Plan
78yo F, former smoker with PMHX of HTN, HFpEF, HLD came with 2 days of SOB describes as inability to take deep breath and chest restriction. Had similar feeling on last admission, when was managed for CHF. FOund HTN emergency, elevated troponin and
leukocytosis with possible bronchitis. Due to persistent symptomatic Afib did HUA/CV on 02/10/24 that improved symptoms. Weaning off O2 and monitoring ahead of d/c
A/P:
#Acute hypoxic insufficiency 2/2 HFpEF acute on chronic exacerbation
#HTN emergency with pulmonary effusions
Lasix, follol electrolytes, daily weight, echo
Nitro dtip PRN
Wean off O2
#Elevated troponin, NSTEMI ruled out, non-ischemic cardiac injury
#ASCVD
#New onset Afib
Lovenox therapeutic switch to Eliquis
ASA, cont statin and BB
TSH WNL
LDL WNL
Cardio consult: HUA CV planned
Serial Troponin, EKG
Telemetry
Echo: preserved EF, grade 2 diastolic dysfunction, no clinically significant valvular disease, no wall motion abnormalities
#Elevated Ddimer
most likely acute phase reactant
No PE on CT chest
US LE neg for DVT
#L ileopsoas bursitis
Outpatient mgmt with PCP
COld compress and NSAIDs if symptomatic
#Leukocytosis 2/2 Acute bronchitis
#Emphysema
Bronchodilators
COVID-19 neg
influenza, RSV neg
procalcitonin low - stop ceftriaxone. can cont Doxy for possible subtile bronchitis, since leukocytosis, however no fever.
#Transaminitis with indirect bilirubinemia - recurrent at least since 2018
no abd pain
US RUQ with small hemangioma and small gall bladder polyp - outpatient monitoring advised
follow LFT
Check hepatitis panel
LDH mildly elevated most likely 2/2 acute disease. check Haptoglobin, but no anemia
#Hx of b/l CARMEN
#Hepatic hemangioma 2.9cm unchanged since 2014
#b/l renal cysts
No additional mgmt advised
#Diverticulosis
#DJD
follow with PCP
High fiber diet
#HLD
#OA
#Hx of breast CA
cont home meds
DVT ppx on therapeutic lovenox
DNR/DNI
I have spent at least 36min reviewing chart, test results, communication with consultants and direct patient care
Anticipated Discharge: Within 24 hours
Subjective/Interval History
-
Date of Service: February 10, 2024
Objective Data
-
Labs:
Laboratory Results
02/10/24
05:45
WBC 14.4 H
Hgb 15.3
Hct 44.8
Plt Count 204
Sodium 133 L
Potassium 4.1
Chloride 88 L
Carbon Dioxide 36 H
BUN 38 H
Creatinine 0.9
Glucose 122 H
Calcium 9.5
Total Bilirubin 1.9 H
AST 40 H
ALT 46 H
Alkaline Phosphatase 71
Vital Signs:
Vital Signs
Temp Pulse Resp BP Pulse Ox
97.6 F 82 18 117/63 95
02/10/24 03:03 02/10/24 09:48 02/10/24 09:48 02/10/24 09:48 02/10/24 07:44
I&O
02/09/24 02/10/24 02/11/24
06:59 06:59 06:59
Intake Total 1130 / 1130
Output Total 1050 / 1050 300 / 300
Balance 80 / 80 -300 / -300
Review of Systems
-
History Source: Patient
All other systems: Reviewed and negative
Physical Exam
-
General: Well Developed, Well Nourished and No Apparent Distress
HEENT: Normocephalic
Respiratory: Clear to Auscultation
Cardiac: Regular Rhythm
GI: Soft, Nontender and Nondistended
Musculoskeletal: No Clubbing, No Cyanosis and No Edema
Psych: Calm
[2024-02-10] MEDS: COZAAR PO (10:44)
[2024-02-10] MEDS: LASIX IV (10:44)
--- NOTE | 2024-02-10 10:50 | ITS.CL.CARDI ---
[facility] - Cardioversion
Cardioversion
Procedure Report:
Date of Procedure: 02/10/24
Procedure: Cardioversion
Indication: Symptomatic atrial fibrillation
Performing Physician:Mary Ferris DO [facility]
Anticoagulation: Eliquis started 02/07/2024
Transesophageal echocardiogram preprocedure: No left atrial appendage thrombus. Please see official report for full details
Technique: The patient was brought to the holding area. Signed informed consent was obtained. A time out was called and performed. The patient was anesthetized by the anesthesia service. Anticoagulation status was reviewed and appropriate.
Transesophageal echocardiogram performed without complication; no left atrial appendage thrombus. R2 pads were placed anteriorly and posteriorly. A 200 J synchronized biphasic shock followed by 250 J shock restored normal sinus rhythm without
significant bradycardia. There were no complications.
Conclusion: Uncomplicated cardioversion from atrial fibrillation to sinus rhythm.
Recommendation: Routine post cardioversion care. Continue detention anticoagulation.
[2024-02-10] MEDS: VIBRAMYCIN 100 MG PO ×2 (10:55→20:41)
[2024-02-10] MEDS: TOPROL XL 50 MG PO ×2 (10:55→20:41)
[2024-02-10] MEDS: ZOLOFT 25 MG PO (10:56)
[2024-02-10] MEDS: LOW STRENGTH ASPIRIN 81 MG PO (11:00)
--- NOTE | 2024-02-10 11:42 | CM ---
Patient son seen in room. Patient out to testing. Patient son stated that patient has had [facility] in the past and would prefer returning to them instead of [facility]. CM will update referral. Patient currently on O2 and per son if O2 needed would
prefer using [facility] O2. CM reviewed discharge plan with son and he is in agreement with plan. CM will continue to follow for discharge planning needs.
Plan; home with [facility] watch for home O2 needs and will need referral to [facility] if needed.
[2024-02-10] MEDS: CRESTOR 40 MG PO (18:14)
--- NOTE | 2024-02-10 20:00 | PTCARENOTE ---
Received pt from previous shift. Assessment performed, see flowsheets. Pt AAOx3, sitting comfortably in chair. Assisted pt to the bathroom and then back to bed. RA, 90-91%. Will continue to monitor and assess for O2 needs. NSR on heart monitor. Last
dose of vibramycin administered. Pt has no acute complaints at this time. Will continue to monitor.
[2024-02-11] VITALS (20 sets, daily range): BP systolic 92–178; BP diastolic 41–76; O2SAT 90
[2024-02-11] MEDS: LASIX 40 MG IV (05:39)
[2024-02-11 06:10] LABS: % Basophils 0.6 % (0-2); % Eosinophils 1.7 % (0-6); % Immature Granulocytes 0.5 % (0-0.5); % Monocytes 9.5 % (1.7-9.3); % Neutrophils 63.7 % (42.2-75.2); Absolute Basophils 0.1 10^3/uL (0-0.2); Absolute Eosinophils 0.2 10^3/uL (0-0.7); Absolute Immature Granulocytes 0.1 10^3/uL (0-0.05); Absolute Lymphocytes 2.7 10^3/uL (1.2-3.4); Absolute Monocytes 1.1 10^3/uL (0.1-0.6); Absolute Neutrophils 7.2 10^3/uL (1.4-6.5); Hematocrit 38.3 % (37.0-47.0); Hemoglobin 13.2 g/dL (12.0-16.0); Mean Corp Hgb Conc. 34.5 g/dL (33.0-37.0); Mean Corpuscular Hgb 28.3 pg (27.0-31.0); Mean Platelet Volume 11.4 fL (7.4-10.4); Nucleated Red Blood Cells % 0 %; Platelet Count 188 10^3/uL (130-400); Red Blood Cell Count 4.67 10^6/uL (4.20-5.40); Red Cell Dist. Width 13.2 % (11.5-14.5); White Blood Cell Count 11.3 10^3/uL (4.8-10.8)
[2024-02-11 06:25] LABS: ALT (SGPT) 52 U/L (0-35); AST (SGOT) 43 U/L (14-36); Albumin 3.4 g/dl (3.5-5.0); Alkaline Phosphatase 74 U/L (38-126); Blood Urea Nitrogen 32 mg/dl (7-17); Calcium 9.5 mg/dl (8.4-10.2); Carbon Dioxide 36 mmol/L (22-30); Chloride 88 mmol/L (98-107); Estimated Creatinine Clearance 44 ml/min; Glucose 112 mg/dl (70-99); Potassium 3.8 mmol/L (3.5-5.1); Sodium 129 mmol/L (135-145); Total Bilirubin 2.1 mg/dl (0.2-1.3); Total Protein 5.5 g/dl (6.3-8.2); eGFR > 60.00
[2024-02-11 06:33] LABS: NT-proBNP 860 pg/ml
[2024-02-11] MEDS: SYMBICORT 160/4.5 MCG INHALER 2 PUFF INH ×2 (07:21→21:05)
[2024-02-11] MEDS: LOW STRENGTH ASPIRIN 81 MG PO (07:51)
[2024-02-11] MEDS: COZAAR 75 MG PO (07:51)
[2024-02-11] MEDS: TOPROL XL 50 MG PO ×2 (07:51→20:31)
[2024-02-11] MEDS: ZOLOFT 25 MG PO (07:51)
[2024-02-11] MEDS: ELIQUIS 2.5 MG PO ×2 (07:51→20:31)
--- NOTE | 2024-02-11 09:00 | PTCARENOTE ---
Patient received from cake cutter machine. Patient resting comfortably in bed. No events noted overnight. No complaints of pain at this time. AAO, VSS. Patient remains in NSR. Possible D/C vs downgrade. Call lebron in reach.
--- NOTE | 2024-02-11 13:13 | W.PN.HOSP.TC ---
Today's Communication/Plan
-
Switch to oral lasix
Urine studies
Follow BMP
Assessment / Plan
Assessment / Plan
78yo F, former smoker with PMHX of HTN, HFpEF, HLD came with 2 days of SOB describes as inability to take deep breath and chest restriction. Had similar feeling on last admission, when was managed for CHF. FOund HTN emergency, elevated troponin and
leukocytosis with possible bronchitis. Due to persistent symptomatic Afib did HUA/CV on 02/10/24 that improved symptoms. Weaning off O2 and monitoring BMP ahead of d/c
A/P:
#Acute hypoxic insufficiency 2/2 HFpEF acute on chronic exacerbation
#HTN emergency with pulmonary effusions
Lasix, follol electrolytes, daily weight, echo
Nitro dtip PRN
Wean off O2
#Elevated troponin, NSTEMI ruled out, non-ischemic cardiac injury
#ASCVD
#New onset Afib
Lovenox therapeutic switch to Eliquis
ASA, cont statin and BB
TSH WNL
LDL WNL
Cardio consult: HUA CV planned
Serial Troponin, EKG
Telemetry
Echo: preserved EF, grade 2 diastolic dysfunction, no clinically significant valvular disease, no wall motion abnormalities
#Hyponatremia
suspect 2/2 Lasix
Urtine studies
follow BMP
if further drop - might need nephrology, but suspect initial reaction to Lasix.
Mild hyponatremia >130 to be well tolerated
#Elevated Ddimer
most likely acute phase reactant
No PE on CT chest
US LE neg for DVT
#L ileopsoas bursitis
Outpatient mgmt with PCP
COld compress and NSAIDs if symptomatic
#Leukocytosis 2/2 Acute bronchitis
#Emphysema
Bronchodilators
COVID-19 neg
influenza, RSV neg
procalcitonin low - stop ceftriaxone. can cont Doxy for possible subtile bronchitis, since leukocytosis, however no fever.
#Transaminitis with indirect bilirubinemia - recurrent at least since 2017
no abd pain
US RUQ with small hemangioma and small gall bladder polyp - outpatient monitoring advised
follow LFT
Check hepatitis panel
LDH mildly elevated most likely 2/2 acute disease. check Haptoglobin, but no anemia
#Hx of b/l CARMEN
#Hepatic hemangioma 2.9cm unchanged since 2014
#b/l renal cysts
No additional mgmt advised
#Diverticulosis
#DJD
follow with PCP
High fiber diet
#HLD
#OA
#Hx of breast CA
cont home meds
DVT ppx on therapeutic lovenox
DNR/DNI
I have spent at least 36min reviewing chart, test results, communication with consultants and direct patient care
Anticipated Discharge: Within 24 hours
Subjective/Interval History
-
Date of Service: February 11, 2024
Objective Data
-
Labs:
Laboratory Results
02/11/24
05:51
WBC 11.3 H
Hgb 13.2
Hct 38.3
Plt Count 188
Sodium 129 L
Potassium 3.8
Chloride 88 L
Carbon Dioxide 36 H
BUN 32 H
Creatinine 0.8
Glucose 112 H
Calcium 9.5
Total Bilirubin 2.1 H
AST 43 H
ALT 52 H
Alkaline Phosphatase 74
Vital Signs:
Vital Signs
Temp Pulse Resp BP Pulse Ox
98.3 F 68 14 136/65 91
02/11/24 11:35 02/11/24 07:26 02/11/24 07:26 02/11/24 05:00 02/11/24 09:00
I&O
02/10/24 02/11/24 02/12/24
06:59 06:59 06:59
Intake Total 740 / 740
Output Total 300 / 300 400 / 400 700 / 700
Balance -300 / -300 340 / 340 -700 / -700
Review of Systems
-
History Source: Patient
All other systems: Reviewed and negative
Respiratory: Reports Trouble Breathing
Physical Exam
-
General: No Apparent Distress
HEENT: Normocephalic
Respiratory: Clear to Auscultation
Cardiac: Regular Rhythm
GI: Soft, Nontender and Nondistended
Musculoskeletal: No Clubbing, No Cyanosis and No Edema
--- NOTE | 2024-02-11 14:11 | W.PN.CARDCBS ---
Today's Communication / Plan
-
Transition to oral Lasix
Ambulate and assess home O2 needs
Repeat lab work tomorrow to follow hyponatremia
Impression / Plan
-
PCP: Dr. Klein
Cardiology: Dr. Kamara
Impression:
Acute hypoxic respiratory insufficiency
Acute HFpEF
Newly diagnosed paroxysmal Afib with RVR 02/07/24
HTN emergency
Preserved EF 65-70% by echo 09/20/23
h/o post-op acute HF following CARMEN in 2014
History of right breast cancer 1999
Hypertension
Hypercholesterolemia
History of diverticulitis
h/o orthostasis
h/o recurrent hyponatremia in the setting of HCTZ use
Nonischemic myocardial injury
Echo 03/2015: Normal LV, EF 55-60%, normal RV, normal atria, normal mitral and aortic valve mild tricuspid regurgitation, pulmonary artery pressure 45-50 mmHg
Echo 09/20/23: EF 65-70%, mild MR, mild to mod TR with PAP 55-60 mmHg
Echo 02/06/24: Ejection fraction 55 to 60%, mild concentric LVH, stage II diastolic dysfunction, mild MR, no AAS/AI, mild to moderate TR with PAP 40 to 45 mmHg no significant change compared to echo from 09/20/23
Plan:
Newly diagnosed atrial fibrillation with RVR
-Transesophageal echocardiogram 02/10/2024 without left atrial appendage thrombus.
-DC cardioversion 02/10/2024 successful with attempts at 200 J x1 followed by 250 J x1
-She is maintaining sinus rhythm
-Continue uninterrupted Eliquis 2.5 mg BID (age 78, wt 56.3 kg, Cre 0.8) started 02/07/2024
-Outpatient dose of atenolol changed to Toprol XL to 50 mg BID on 02/08/24.
Hypoxic respiratory failure with ongoing O2 requirements
-Respiratory status has improved now on room air at rest
-I have asked nursing to have respiratory ambulate patient to assess home O2 needs
-Prior CT scans have noted severe emphysema and possible interstitial fibrosis. Patient has a history of smoking and I recommended outpatient pulmonary follow-up
-Volume status is overall improved with IV Lasix and will transition to oral Lasix 40 mg daily. Outpatient hydrochlorothiazide being discontinued
Hyponatremia slightly worse today�will follow with labs.
History of hypertension with lower blood pressure trends
-Blood pressure overall better. Continue losartan and uptitrate back to 100 mg daily if blood pressures continue to be high.
Leukocytosis felt to be secondary to acute bronchitis improving with no fevers
-On doxycycline
-Recommend outpatient pulmonary follow-up
-Elevated troponin without chest pain
- nonischemic myocardial injury Troponin elevation.
-Plan for outpatient ischemic evaluation
-Continue medical therapy
Left iliopsoas bursitis with recommendations for outpatient follow-up
Discharge planning per primary; anticipate in the next 24-48 hours
Plan discussed with hospitalist. Cardiac testing, course and plan discussed with son at bedside
HPI: Patient came to [facility] very early this morning with a sense apprehension and SOB and was admitted with acute HF with a consultation to cardiology. Patient was admitted to 09/19/23 until 09/22/23 with acute HFpEF. Patient was diuresed that
admission and discharged to home on Lasix 20 mg PO daily. Patient was seen in the office within 2 weeks of discharge and appeared to be doing well, in fact her weight was down another 5 lbs and so her Lasix was cut to 20 mg MWF with a plan to
continue daily weights. Patient says that she stopped weighing herself daily in the last couple of months and also stopped checking her BP at home. She started with a sense of anxiety and apprehension in the last few days and then started with a dry
cough. She was more SOB going to be last night and awoke gasping for breath late last night and called 911. Paramedics found the patient in respiratory distress and 100% NRB was started and then switched to BiPAP in the ER. Nitro gtt started and
then stopped due to hypotension. Her usual dose of atenolol was restarted this AM. Her outpatient dose of losartan 50 mg daily has not been restarted yet.
Progress Note - Dial Marker
Subjective
Date of Service: February 11, 2024
Patient seen and examined. Overall feels better with less shortness of breath, no palpitations or dizziness. No chest pain.
Objective
Labs:
02/11/24 05:51
02/11/24 05:51
Labs
Hgb 13.2 g/dL (12.0-16.0) 02/11/24 05:51
Hct 38.3 % (37.0-47.0) 02/11/24 05:51
Plt Count 188 10^3/uL (130-400) 02/11/24 05:51
Sodium 129 mmol/L (135-145) L 02/11/24 05:51
Potassium 3.8 mmol/L (3.5-5.1) 02/11/24 05:51
BUN 32 mg/dl (7-17) H 02/11/24 05:51
Creatinine 0.8 mg/dL (0.6-1.0) 02/11/24 05:51
Glucose 112 mg/dl (70-99) H 02/11/24 05:51
Vital Signs and I&O:
Vital Signs
Temp Pulse Resp BP Pulse Ox
98.3 F 68 14 136/65 91
02/11/24 11:35 02/11/24 07:26 02/11/24 07:26 02/11/24 05:00 02/11/24 09:00
Vital Signs
Temp Pulse Resp BP Pulse Ox
98.3 F 68 14 136/65 91
02/11/24 11:35 02/11/24 07:26 02/11/24 07:26 02/11/24 05:00 02/11/24 09:00
Intake & Output
02/09/24 02/10/24 02/11/24 02/12/24
06:59 06:59 06:59 06:59
Intake Total 1130 / 1130 740 / 740
Output Total 1050 / 1050 300 / 300 400 / 400 700 / 700
Balance 80 / 80 -300 / -300 340 / 340 -700 / -700
Physical Exam
Physical Exam
General: No acute distress, AAOX3
Heart: Regular, positive S1/S2, 2/6 SM
Lungs: Bronchovesicular breath sounds with scattered rhonchi. No wheezes. Decreased bases
Abd: Positive BS, NT/ND, neg rebound/rigidity/guarding
Ext: No lower extremity edema
Neuro: nonfocal
[2024-02-11 15:24] LABS: Osmolality Urine 230 mOsm/kg (300-900)
--- NOTE | 2024-02-11 15:30 | PTCARENOTE ---
Report called to Lance RN 3W
[2024-02-11 15:45] LABS: Urine Sodium 14 mmol/L (30-90)
--- NOTE | 2024-02-11 17:01 | PTCARENOTE ---
Patient transported to via wheel chair. Patient left with all known belongings.
[2024-02-11] MEDS: CRESTOR 40 MG PO (17:50)
--- NOTE | 2024-02-11 18:33 | PTCARENOTE ---
1715 Pt received from IMU via wheelchair accompanied by staff and grandson. Pt ambulated from wheelchair to bed with a steady gait. Pt oriented to staff and environment. Dual nurse skin assessment done with LINDEN Barajas. Pt with bruise to LLQ of
abdomen, Right lateral aspect of posterior leg, rash to chin, scratch jose to left buttock, and left AC with raised/ swollen area. Personal items and call light within reach. Pt placed on telemetry box # 18.
--- NOTE | 2024-02-11 21:06 | PTCARENOTE ---
Patient c/o rash to face and states 'What are we going to do about this?' Red, dry flaky rash to entire face present, patient denies pain, soreness, itching at this time and that it is new for her. Examined patient's entire body -- red raised rash
noted to entire back as well, patient states back is extremely itchy and has been scratching it, some slight breaks in the skin from patient scratching. Notified SHERYL Bird, one time stat dose PO Benadryl ordered for itching, obtained and provided
to patient - see AUG. Will monitor.
[2024-02-11] MEDS: BENADRYL 25 MG PO (22:18)
[2024-02-12 03:00] VITALS: BP 144/57
[2024-02-12 07:00] VITALS: BP 152/82
[2024-02-12 07:27] LABS: Blood Urea Nitrogen 20 mg/dl (7-17); Calcium 9.5 mg/dl (8.4-10.2); Carbon Dioxide 38 mmol/L (22-30); Chloride 88 mmol/L (98-107); Estimated Creatinine Clearance 51 ml/min; Glucose 104 mg/dl (70-99); Sodium 132 mmol/L (135-145); eGFR > 60.00
[2024-02-12] MEDS: ELIQUIS 2.5 MG PO (07:33)
[2024-02-12] MEDS: TOPROL XL 50 MG PO (07:33)
[2024-02-12] MEDS: LASIX 40 MG PO (07:34)
[2024-02-12] MEDS: COZAAR 75 MG PO (07:34)
[2024-02-12] MEDS: LOW STRENGTH ASPIRIN 81 MG PO (07:34)
[2024-02-12 07:37] VITALS: BMI 22.9
[2024-02-12] MEDS: SYMBICORT 160/4.5 MCG INHALER 2 PUFF INH (07:39)
[2024-02-12] MEDS: ZOLOFT 25 MG PO (07:42)
--- NOTE | 2024-02-12 09:36 | CM ---
Addendum entered by GRACIA Cardenas 02/12/24 16:31:
Patient's son Marc stated that he would like for VN instead of [facility]. Will cancel [facility]. Referral sent to VN.
Addendum entered by GRACIA Cardenas 02/12/24 15:10:
Received consult for o2. Placed a call to Ayala from [facility], who confirmed that she would be able to set up o2 for patient today. Faxed over requested documents: Face Sheet, H&P, Latest progress note, o2 sat testing and script. faxed
to [phone].
Ayala confirmed that she has everything she needs. She asked that patient call, prior to leaving so that o2 can be set up at home. Ayala will meet with patient in hospital for portable.
Patient asked that her son, Marc receive update, .
Placed a call to Marc and relayed the information. Provided the number above and he stated that he will call prior to leaving the hospital.
IMM signed and reviewed with patient.
Original Note:
Patient progressing well per therapy notes. Still desatting upon activity. Will watch for o2 needs.
Plan: Case management will continue to follow and assist with discharge planning. Home with VN and o2 if needed.
[2024-02-12 11:00] VITALS: BP 128/94
--- NOTE | 2024-02-12 12:37 | W.PN.HOSP.TC ---
Today's Communication/Plan
-
Home O2 assessment and D/C
Assessment / Plan
Assessment / Plan
78yo F, former smoker with PMHX of HTN, HFpEF, HLD came with 2 days of SOB describes as inability to take deep breath and chest restriction. Had similar feeling on last admission, when was managed for CHF. FOund HTN emergency, elevated troponin and
leukocytosis with possible bronchitis. Due to persistent symptomatic Afib did HUA/CV on 02/10/24 that improved symptoms. Weaning off O2 and monitoring BMP ahead of d/c since mild hyponatremia most likely combination of new Lasix and SSRI, that
improving without intervention. Reasonable for outpatient BMP monitoring with PCP. Home O2 assessment ahead of d/c. For mild persistent chronic indirect bilirubinemia - recommend outpatient MRCP
A/P:
#Acute hypoxic insufficiency 2/2 HFpEF acute on chronic exacerbation
#HTN emergency with pulmonary effusions
Lasix, follol electrolytes, daily weight, echo
Nitro drip PRN - completed
Wean off O2
Home O2 assesment
#Elevated troponin, NSTEMI ruled out, non-ischemic cardiac injury
#ASCVD
#New onset Afib
Lovenox therapeutic switch to Eliquis
ASA, cont statin and BB
TSH WNL
LDL WNL
Cardio consult: HUA CV planned
Serial Troponin, EKG
Telemetry
Echo: preserved EF, grade 2 diastolic dysfunction, no clinically significant valvular disease, no wall motion abnormalities
#Hyponatremia
suspect 2/2 Lasix - transient
Outpatient BMP with PCP
#Elevated Ddimer
most likely acute phase reactant
No PE on CT chest
US LE neg for DVT
#L ileopsoas bursitis
Outpatient mgmt with PCP
COld compress and NSAIDs if symptomatic
#Leukocytosis 2/2 Acute bronchitis
#Emphysema
Bronchodilators
COVID-19 neg
influenza, RSV neg
procalcitonin low - stop ceftriaxone. can cont Doxy for possible subtile bronchitis, since leukocytosis, however no fever - completed
#Transaminitis with indirect bilirubinemia - recurrent at least since 2017
no abd pain
US RUQ with small hemangioma and small gall bladder polyp - outpatient monitoring advised
follow LFT
hepatitis panel neg
LDH mildly elevated most likely 2/2 acute disease. check Haptoglobin, but no anemia
Recommend outpatient MRCP
#Hx of b/l CARMEN
#Hepatic hemangioma 2.9cm unchanged since 2014
#b/l renal cysts
No additional mgmt advised
#Diverticulosis
#DJD
follow with PCP
High fiber diet
#HLD
#OA
#Hx of breast CA
cont home meds
DVT ppx on therapeutic lovenox
DNR/DNI
I have spent at least 36min reviewing chart, test results, communication with consultants and direct patient care
Anticipated Discharge: Within 24 hours
Subjective/Interval History
-
Date of Service: February 12, 2024
Objective Data
-
Labs:
Laboratory Results
02/12/24
06:14
Sodium 132 L
Potassium 4.0
Chloride 88 L
Carbon Dioxide 38 H
BUN 20 H
Creatinine 0.7
Glucose 104 H
Calcium 9.5
Vital Signs:
Vital Signs
Temp Pulse Resp BP Pulse Ox
98.2 F 61 18 128/94 93
02/12/24 11:00 02/12/24 11:00 02/12/24 11:00 02/12/24 11:00 02/12/24 11:00
I&O
02/11/24 02/12/24 02/13/24
06:59 06:59 06:59
Intake Total 740 / 740 960 / 960
Output Total 400 / 400 1350 / 1350
Balance 340 / 340 -1350 / -1350 960 / 960
Review of Systems
-
History Source: Patient
All other systems: Reviewed and negative
Physical Exam
-
General: No Apparent Distress
HEENT: Normocephalic
Respiratory: Clear to Auscultation
Cardiac: Regular Rhythm
GI: Soft, Nontender and Nondistended
Genito-urinary: No Costovertebral Tender
Musculoskeletal: No Clubbing, No Cyanosis and No Edema
Skin: Warm
Neuro: Awake, Alert, Oriented and AO x 3
Psych: Calm
--- NOTE | 2024-02-12 13:11 | W.PN.CARDCBS ---
Today's Communication / Plan
-
Discharge planning discussed with primary service
Assess needs for home O2
Will sign off, recall if needed
Impression / Plan
-
PCP: Dr. Klein
Cardiology: Dr. Kamara
Impression:
Acute hypoxic respiratory insufficiency
Acute HFpEF
Newly diagnosed paroxysmal Afib with RVR 02/07/24
HTN emergency
Preserved EF 65-70% by echo 09/20/23
h/o post-op acute HF following CARMEN in 2014
History of right breast cancer 1999
Hypertension
Hypercholesterolemia
History of diverticulitis
h/o orthostasis
h/o recurrent hyponatremia in the setting of HCTZ use
Nonischemic myocardial injury
Echo 03/2015: Normal LV, EF 55-60%, normal RV, normal atria, normal mitral and aortic valve mild tricuspid regurgitation, pulmonary artery pressure 45-50 mmHg
Echo 09/20/23: EF 65-70%, mild MR, mild to mod TR with PAP 55-60 mmHg
Echo 02/06/24: Ejection fraction 55 to 60%, mild concentric LVH, stage II diastolic dysfunction, mild MR, no AAS/AI, mild to moderate TR with PAP 40 to 45 mmHg no significant change compared to echo from 09/20/23
Plan:
Newly diagnosed atrial fibrillation with RVR now status post cardioversion maintaining sinus rhythm
-Transesophageal echocardiogram 02/10/2024 without left atrial appendage thrombus.
-DC cardioversion 02/10/2024 successful with attempts at 200 J x1 followed by 250 J x1
-Continue uninterrupted Eliquis 2.5 mg BID (age 78, wt 56.3 kg, Cre 0.8) started 02/07/2024
-Outpatient dose of atenolol changed to Toprol XL to 50 mg BID on 02/08/24.
Hypoxic respiratory failure with bronchitis and severe emphysema noted on CT imaging
-On room air at rest.
-Patient desatted with exercise yesterday now being assessed for home O2 needs.
-Prior CT scans have noted severe emphysema and possible interstitial fibrosis with prior smoking history.
- I recommended outpatient pulmonary follow-up
-Volume status is overall improved with IV Lasix and transition to oral Lasix 40 mg daily. [Outpatient hydrochlorothiazide being discontinued]
Hyponatremia -improved, sodium 132 today. Would continue close outpatient monitoring. Patient and her son informed SSRI can cause hyponatremia and they will discuss with their family physician as an outpatient
History of hypertension with lower blood pressure trends
-Blood pressure overall better. Continue losartan and uptitrate back to 100 mg daily
Leukocytosis felt to be secondary to acute bronchitis improving with no fevers; improving
-Recommend outpatient pulmonary follow-up
-Elevated troponin without chest pain
- nonischemic myocardial injury Troponin elevation.
-Plan for outpatient ischemic evaluation
-Continue medical therapy
Left iliopsoas bursitis with recommendations for outpatient follow-up
Discharge planning per primary
Will sign off, recall if needed
Patient has outpatient appointment with Dr. Howard 02/21/2024. She has an appointment with her primary care physician February 15, 2024
HPI: Patient came to [facility] very early this morning with a sense apprehension and SOB and was admitted with acute HF with a consultation to cardiology. Patient was admitted to 09/19/23 until 09/22/23 with acute HFpEF. Patient was diuresed that
admission and discharged to home on Lasix 20 mg PO daily. Patient was seen in the office within 2 weeks of discharge and appeared to be doing well, in fact her weight was down another 5 lbs and so her Lasix was cut to 20 mg MWF with a plan to
continue daily weights. Patient says that she stopped weighing herself daily in the last couple of months and also stopped checking her BP at home. She started with a sense of anxiety and apprehension in the last few days and then started with a dry
cough. She was more SOB going to be last night and awoke gasping for breath late last night and called 911. Paramedics found the patient in respiratory distress and 100% NRB was started and then switched to BiPAP in the ER. Nitro gtt started and
then stopped due to hypotension. Her usual dose of atenolol was restarted this AM. Her outpatient dose of losartan 50 mg daily has not been restarted yet.
Progress Note - Security Rover
Subjective
Date of Service: February 12, 2024
Patient seen and examined with son at bedside. Ambulating in room to bathroom unassisted. Denies chest pain or pressure. Improved shortness of breath.
Objective
Labs:
02/11/24 05:51
02/12/24 06:14
Labs
Hgb 13.2 g/dL (12.0-16.0) 02/11/24 05:51
Hct 38.3 % (37.0-47.0) 02/11/24 05:51
Plt Count 188 10^3/uL (130-400) 02/11/24 05:51
Sodium 132 mmol/L (135-145) L 02/12/24 06:14
Potassium 4.0 mmol/L (3.5-5.1) 02/12/24 06:14
BUN 20 mg/dl (7-17) H 02/12/24 06:14
Creatinine 0.7 mg/dL (0.6-1.0) 02/12/24 06:14
Glucose 104 mg/dl (70-99) H 02/12/24 06:14
Vital Signs and I&O:
Vital Signs
Temp Pulse Resp BP Pulse Ox
98.2 F 61 18 128/94 93
02/12/24 11:00 02/12/24 11:00 02/12/24 11:00 02/12/24 11:00 02/12/24 11:00
Vital Signs
Temp Pulse Resp BP Pulse Ox
98.2 F 61 18 128/94 93
02/12/24 11:00 02/12/24 11:00 02/12/24 11:00 02/12/24 11:00 02/12/24 11:00
Intake & Output
02/10/24 02/11/24 02/12/24 02/13/24
06:59 06:59 06:59 06:59
Intake Total 740 / 740 960 / 960
Output Total 300 / 300 400 / 400 1350 / 1350
Balance -300 / -300 340 / 340 -1350 / -1350 960 / 960
Physical Exam
Physical Exam
General: No acute distress, AAOX3
Heart: Regular, positive S1/S2, 2/6 SM
Lungs: Bronchovesicular breath sounds with scattered rhonchi. No wheezes. Decreased bases
Abd: Positive BS, NT/ND, neg rebound/rigidity/guarding
Ext: No lower extremity edema
Neuro: nonfocal
--- NOTE | 2024-02-12 13:56 | W.DCSUMMARY ---
Discharge Summary
Discharge Data
Date of Admission: 02/06/24
Date of Discharge: 02/12/24
-
Pending Results: No
Hospital Course
78yo F, former smoker with PMHX of HTN, HFpEF, HLD came with 2 days of SOB describes as inability to take deep breath and chest restriction. Had similar feeling on last admission, when was managed for CHF. Found HTN emergency, elevated troponin and
leukocytosis with possible bronchitis. Due to persistent symptomatic Afib did HUA/CV on 02/10/24 that improved symptoms. Weaning off O2 and monitoring BMP ahead of d/c since mild hyponatremia most likely combination of new Lasix and SSRI, that
improving without intervention. Reasonable for outpatient BMP monitoring with PCP. Home O2 assessment done and patient will need 3L O2NC on excertion - cm arranged it with supplier before d/c as confirmed via [employer].
For mild persistent chronic indirect bilirubinemia - recommend outpatient MRCP
Patient and her son verbalized understanding of instructions.
Medically stable for d/c
I have spent at least 37min preparing D/C
Patient was managed for:
#Acute hypoxic insufficiency 2/2 HFpEF acute on chronic exacerbation
#HTN emergency with pulmonary effusions
#Elevated troponin, NSTEMI ruled out, non-ischemic cardiac injury
#ASCVD
#New onset Afib
#Hyponatremia
#Elevated Ddimer
#L ileopsoas bursitis
#Leukocytosis 2/2 Acute bronchitis
#Emphysema
#Transaminitis with indirect bilirubinemia - recurrent at least since 2018
#Hx of b/l CARMEN
#Hepatic hemangioma 2.9cm unchanged since 2014
#b/l renal cysts#Diverticulosis
#DJD
#HLD
#OA
#Hx of breast CA
Discharge Plan
-
Patient Disposition: Home (Routine Discharge)
Discharge Diagnosis/Procedures: CHF, afib
Diet: Other diet
Additional Diets: High fiber
Activity: As tolerated
Driving Restrictions: As prior to admission
Specialty Instructions: Weigh Daily- Call MD for wt gain/loss 3 lbs overnight/5 lbs in 1 week
Instructions: *DCA Heart Failure Instructions
Referrals:
Haroldo Klein MD [Family Provider] - (monitor bilirubin, consider MRCP)
Eligio Kamara MD [Active] - 02/21/24 11:20 am (Your appointment time has changed. You are scheduled for cardiology follow up 02/20, now at 11:20AM. Please call with questions. )
Prescriptions:
New
Eliquis 2.5 mg Tablet
2.5 mg PO BID Qty: 60 11RF
furosemide 40 mg Tablet
40 mg PO DAILY Qty: 30 0RF
metoprolol succinate 50 mg Tablet Extended Release 24 Hr
50 mg PO BID Qty: 30 0RF
losartan 100 mg Tablet
100 mg PO DAILY Qty: 30 0RF
budesonide-formoterol [Symbicort] 160-4.5 mcg/actuation Hfa Aerosol Inhaler
2 puff inhalation R BID Qty: 10.2 0RF
Continued
rosuvastatin 40 mg tablet
40 mg PO QPM
therapeutic multivitamin Tablet
1 tab PO DAILY
acetaminophen 650 mg Tablet Extended Release
650 mg PO HSPRN PRN (Reason: sleep)
sertraline 25 mg Tablet
25 mg PO HS
magnesium glycinate 118 mg magnesium Capsule
118 mg PO DAILY
Discontinued
atenolol 25 mg tablet
25 mg PO DAILY
losartan-hydrochlorothiazide 50-12.5 mg Tablet
1 tab PO DAILY
Discharge Orders:
Discharge Patient (As Directed); Ordered 02/12/24
Ordered By: Shakir Rodriguez
Discharge Date and Time
Print Language: NIUEAN
[2024-02-12 15:00] VITALS: BP 137/50
== END 2024-02-12 17:27 | disposition home health service (06) | DRG 291 ==
LOC: 3 WEST ACU 02:11
PROVIDERS: Internal Medicine Cardiovascular Disease; Physician Assistant Medical; Student in an Organized Health Care Education/Training Program; ADMITTING PHYSICIAN Internal Medicine; ATTENDING PHYSICIAN Internal Medicine; CONSULT PHYSICIAN Internal Medicine Cardiovascular Disease; CONSULT PHYSICIAN Internal Medicine Hematology & Oncology; EMERGENCY PHYSICIAN Emergency Medicine; FAMILY PHYSICIAN Family Medicine
PROC: B24BZZ4 Ultrasonography of Heart with Aorta, Transesophageal (ICD-10-PCS; 2024-02-10)
PROC: 5A2204Z Restoration of Cardiac Rhythm, Single (ICD-10-PCS; 2024-02-10)
DX: I11.0 Hypertensive heart disease with heart failure (principal); I50.33 Acute on chronic diastolic (congestive) heart failure; I16.1 Hypertensive emergency; E87.1 Hypo-osmolality and hyponatremia; J20.9 Acute bronchitis, unspecified; I48.0 Paroxysmal atrial fibrillation; I5A Non-ischemic myocardial injury (non-traumatic); Z85.3 Personal history of malignant neoplasm of breast; Z87.891 Personal history of nicotine dependence
CPT/HCPCS: 71045; 71046; 71275; 73723; 74177; 76700; 80048; 80053; 80061; 82248; 82570; 83010; 83036; 83615; 83735; 83880; 83935; 84145; 84300; 84443; 84484; 85025; 85379; 86704; 86706; 86803; 87340; 87502; 87807; 87811; 92960; 93005; 93306; 93312; 93320; 93325; 93970; 94640; 94660; 96365; 96366; 96375; 97116; 97163; 97166; 97530; 99291; A9575; Q9967